=== PATIENT | male | born 1960 | race Caucasian/White ===

== ENCOUNTER 2023-12-10 05:29 | Inpatient (IN) | payer OTHER, SELFPAY ==
[2023-12-10] VITALS (96 sets, daily range): BP systolic 156–262; BP diastolic 78–154; PULSE 67–100; TEMP 36.3–36.8; O2SAT 90–99; BMI 28.7; BMI 28.5
--- NOTE | 2023-12-10 05:48 | XR_ITS ---
The [address] [address] Patient Name: NISH GARCIA MRN: [id number] date: 1960 Sex: M Assigned Patient Location: ER Current Patient Location: ED.MAIN Accession/Order Number: [id number] Exam Date: 12/10/2023 06:00 Report Date: 12/10/2023 06:40 At the request of: EVELINE WALDRON Procedure: XR chest 1V HISTORY: Headaches, dizziness and hypertension. XR chest 1V: 12/10/2023 6:00 AM EDT COMPARISON: None. FINDINGS: The cardiomediastinal silhouette appears within normal limits in size. No focal consolidation, pleural effusion, pneumothorax, or evidence of congestive heart failure is seen. XR/XR chest 1V IMPRESSION: No radiographic evidence of active cardiopulmonary disease is seen. Electronically authenticated by: WU BRICEÑO Date: 12/10/2023 06:40
--- NOTE | 2023-12-10 05:48 | ED_ITS ---
HPI HPI - General Adult General Chief complaint: Dizziness Stated complaint: dizzy Time Seen by Provider: 12/10/23 05:35 Source: patient Mode of arrival: walk-in Limitations: no limitations History of Present Illness HPI narrative: 62-year-old male presents for headache and dizziness. He has not been to the doctor had his blood pressure checked in more than 3 years. He was at a store yesterday and he had a dizzy episode that lasted for about 20 minutes. He did not pass out and he did not fall down. He has had a headache since then. No localized weakness or numbness. No fever or vomiting. Related Data Home Medications ?Medication ?Instructions ?Recorded ?Confirmed No Known Home Medications 12/10/23 12/10/23 Allergies Allergy/AdvReac Type Severity Reaction Status Date / Time No Known Drug Allergies Allergy Verified 12/10/23 05:41 Opioid HPI Opioid Management Most Recent Opioid Data: No Data to Display Review of Systems ROS Narrative A ten point review of systems is negative except as noted above. Exam Narrative Exam Narrative: Nurses note and vital signs reviewed and patient is not hypoxic. General: The patient appears well and in no apparent distress. Patient is resting comfortably on cart. Skin: Warm, dry, no pallor noted. There is no rash noted. Head: Normocephalic, atraumatic Eye: Normal conjunctiva, no drainage, EOMI. PERRL Ears, Nose, Mouth, and Throat: oral mucosa is moist. Nares patent. Cardiovascular: Regular Rate and Rhythm Respiratory: Patient is in no distress, no accessory muscle use, lungs are clear to auscultation, no wheezing, rales or rhonchi Back: non-tender GI: Soft and nontender Musculoskeletal: The patient has no evidence of calf tenderness, no pitting edema, symmetrical pulses noted bilaterally Neurological: A&O x4, normal speech; upper and lower extremity strength intact, cranial nerves II through XII intact Psychiatric: Cooperative Constitutional Vital Signs, click to edit/add: Last Vital Signs Temp 98.3 F 12/10/23 05:37 Pulse 80 12/10/23 06:13 Resp 20 12/10/23 06:13 BP 260/154 H 12/10/23 06:19 Pulse Ox 96 12/10/23 06:13 O2 Del Method Room Air 12/10/23 05:37 Course Vital Signs Vital signs: Vital Signs Temperature 98.3 F 12/10/23 05:37 Pulse Rate 94 H 12/10/23 05:37 Respiratory Rate 18 12/10/23 05:37 Blood Pressure 260/140 H 12/10/23 05:37 Pulse Oximetry 95 12/10/23 05:37 Oxygen Delivery Method Room Air 12/10/23 05:37 Temperature 98.3 F 12/10/23 05:37 Pulse Rate 80 12/10/23 06:13 Respiratory Rate 20 12/10/23 06:13 Blood Pressure 260/154 H 12/10/23 06:19 Pulse Oximetry 96 12/10/23 06:13 Oxygen Delivery Method Room Air 12/10/23 05:37 Medical Decision Making MDM Narrative Medical decision making narrative: The patient presents with elevated blood pressure. He was given IV labetalol and tests are ordered and the patient is signed out to Dr. Zacarias. Differential Diagnosis Differential Diagnosis: Hypertension, intracranial hemorrhage, acute kidney injury Lab Data Lab results reviewed: Yes I reviewed the patient's lab results Labs: Lab Results 12/10/23 Range/Units 05:50 WBC 12.0 H (4.0-11.0) 10^3/uL RBC 5.89 (4.70-6.10) 10^6/uL Hgb 17.5 (14.0-18.0) g/dL Hct 49.5 (42.0-54.0) % MCV 84.0 (80.0-94.0) fL MCH 29.7 (25.9-34.0) pg MCHC 35.4 H (29.9-35.2) g/dL RDW 12.5 (11.0-15.0) % Plt Count 161 (150-450) 10^3/uL MPV 9.0 L (9.5-13.5) fL Neut % (Auto) 68.9 (43.0-75.0) % Lymph % (Auto) 20.1 L (20.5-60.0) % [place] % (Auto) 4.8 (1.7-12.0) % Eos % (Auto) 5.0 (0.9-7.0) % Baso % (Auto) 1.0 (0.2-2.0) % Neut # (Auto) 8.3 H (1.4-6.5) 10^3/uL Lymph # (Auto) 2.4 (1.2-3.8) 10^3/uL [place] # (Auto) 0.6 (0.3-0.8) 10^3/uL Eos # (Auto) 0.6 (0.0-0.7) 10^3/uL Baso # (Auto) 0.1 (0.0-0.1) 10^3/uL Abs Immat Gran (auto) 0.03 (0.00-0.03) 10^3/uL Imm/Tot Granulo (auto) 0.2 (0.0-0.5) % Sodium 133 L (136-145) mmol/L Potassium 3.6 (3.5-5.1) mmol/L Chloride 98 (98-107) mmol/L Carbon Dioxide 28.2 (21.0-32.0) mmol/L Anion Gap 10.4 BUN 19.0 H (7.0-18.0) mg/dL Creatinine 1.55 H (0.70-1.30) mg/dL Est GFR ( Amer) 55 L (>=60) Est GFR (Non-Af Amer) 46 L (>=60) BUN/Creatinine Ratio 12.3 Glucose 97 (74-106) mg/dL Calcium 9.0 (8.5-10.1) mg/dL ECG Data Attestation: I personally reviewed and interpreted this ECG as follows: (EKG on my interpretation shows normal sinus rhythm with a rate of [address] segment elevation.) Critical Care Time Critical Care Time Critical Care Time: Yes Total Critical Care Time: 35 Attestation: Due to the high probability of sudden and clinically significant deterioration in the patient's condition he/she required the highest level of my preparedness to intervene urgently I provided critical care time including documentation time, medication orders and management, reevaluation, vital sign assessment, ordering and reviewing of lab tests, ordering and reviewing of x-ray studies, and admission orders. Aggregate critical care time is 35 minutes including only time during which I was engaged in work directly related to his/her care and did not include time spent treating other patients simultaneously. Discharge Plan Discharge Patient Disposition: Still a Patient
--- NOTE | 2023-12-10 05:48 | ECG_ITS ---
The [facility] Test Date: 2023-12-10 Pat Name: NISH GARCIA Department: Room: - Gender: Male [employer]: : 1960 Requested By: [id number] Order Number: [id number] Reading MD: MYA MERCADO Measurements Intervals [place] Rate: 82 P: 90 MN: 112 QRS: 62 QRSD: 100 T: 39 QT: 368 QTc: 406 Interpretive Statements 1100 Sinus rhythm 2210 Short MN interval [address] depression 9150 abnormal ECG No previous ECG available for comparison Electronically Signed On 12-10-2023 8:25:16 EDT by MYA MERCADO
--- NOTE | 2023-12-10 05:48 | CT_ITS ---
The [address] [address] Patient Name: NISH GARCIA MRN: [id number] date: 1960 Sex: M Assigned Patient Location: ER Current Patient Location: ER Accession/Order Number: [id number] Exam Date: 12/10/2023 06:00 Report Date: 12/10/2023 06:45 At the request of: EVELINE WALDRON Procedure: CT head/brain wo con EXAMINATION: CT Head without Contrast TECHNIQUE: Multiple axial noncontrast images of the brain were obtained and reformatted according to the standard protocol. QPP DOCUMENTATION: At least one of the following dose reduction techniques was utilized: Iterative reconstruction, and/or Automatic Exposure Control, and/or mA/kV adjustment based on body size. INDICATION: Hypertension, dizziness, headache COMPARISON: None FINDINGS: Intracranial hemorrhage: No CT evidence of intraparenchymal, intraventricular, or extraaxial hemorrhage. Infarct/Vascular: No evidence of acute transcortical infarctions. Subtle areas of decreased attenuation scattered throughout the supratentorial white matter nonspecific but most commonly associated with chronic small vessel ischemic disease. Intracranial Mass: No evidence of intracranial mass. CSF Spaces: The ventricles, sulci, and cisterns are normal. Calvarium and Scalp: Unremarkable. Mastoid Air Cells: Clear. Paranasal Sinuses: Visualized paranasal sinuses are clear. Orbits: Orbits are unremarkable. CT/CT head/brain wo con IMPRESSION: No CT evidence of acute intracranial abnormalities. Mild changes of chronic small vessel ischemic disease. Electronically authenticated by: SOURAV MASON Date: 12/10/2023 06:45
[2023-12-10 05:58] LABS: Basophils Absolute Auto 0.1 10^3/uL (0.0-0.1); Eosinophils Absolute Auto 0.6 10^3/uL (0.0-0.7); Hematocrit 49.5 % (42.0-54.0); Hemoglobin 17.5 g/dL (14.0-18.0); Immature Granulocytes Abs Auto 0.03 10^3/uL (0.00-0.03); Immature Granulocytes Pct Auto 0.2 % (0.0-0.5); Lymphocytes Absolute Auto 2.4 10^3/uL (1.2-3.8); Lymphocytes Percent Auto 20.1 % (20.5-60.0); Mean Corpuscular HGB Conc 35.4 g/dL (29.9-35.2); Mean Corpuscular Hemoglobin 29.7 pg (25.9-34.0); Monocytes Absolute Auto 0.6 10^3/uL (0.3-0.8); Monocytes Percent Auto 4.8 % (1.7-12.0); Neutrophils Absolute Auto 8.3 10^3/uL (1.4-6.5); Neutrophils Percent Auto 68.9 % (43.0-75.0); Platelet Count 161 10^3/uL (150-450); Red Blood Count 5.89 10^6/uL (4.70-6.10); Red Cell Distribution Width 12.5 % (11.0-15.0)
--- NOTE | 2023-12-10 06:01 | PC.NURSE ---
Pt presents to ER for dizziness that occurred yesterday Pt states he walked into [facility] and immediately became very dizzy and had to find something to hold on to so that he didnt fall Pt estimates this episode lasted approximately 5 minutes Pt states he then walked out to his truck and sat for about 30 minutes to make sure he was okay Pt states he has no longer felt dizzy but has a mild headache Pt states he lives alone and was too nervous to fall asleep feeling afraid that he may not be okay Pt states he just wants to be checked out Pt denies any and all medical history and medications
[2023-12-10 06:11] LABS: Anion Gap 10.4; BUN Creatinine Ratio 12.3; Carbon Dioxide 28.2 mmol/L (21.0-32.0); Chloride 98 mmol/L (98-107); Estimated GFR (African America 55 (>=60); Estimated GFR (Non-African Ame 46 (>=60); Glucose 97 mg/dL (74-106); Potassium 3.6 mmol/L (3.5-5.1); Sodium 133 mmol/L (136-145)
[2023-12-10] MEDS: LABETALOL HCL 20 MG/4 ML SYRINGE IVP (06:25)
[2023-12-10] MEDS: HYDRALAZINE HCL 20 MG/ML VIAL 10 MG IVP ×3 (07:27→17:02)
[2023-12-10 07:43] LABS: Bilirubin Urine NEGATIVE (NEGATIVE); Blood Urine NEGATIVE (NEGATIVE); Clarity Urine CLEAR (CLEAR); Color Urine LT. YELLOW (YELLOW); Glucose Urine UA NEGATIVE (NEGATIVE); Ketones Urine NEGATIVE (NEGATIVE); Leukocyte Esterase Urine NEGATIVE (NEGATIVE); Nitrite Urine NEGATIVE (NEGATIVE); Protein Urine NEGATIVE (NEG/TRACE); Specific Gravity Urine <=1.005 (1.005-1.025); Urobilinogen Urine 0.2 EU/dL (0.2-1.0)
[2023-12-10 07:57] LABS: Bacteria Urine NONE SEEN #/HPF (NONE SEEN); Cast Seen? NONE SEEN #/LPF (NONE SEEN); Crystals Seen? None Seen #/HPF (None Seen); Mucus Urine NONE SEEN (NONE SEEN); RBC Urine 0-2 #/HPF (0-2); Squamous Epithelial Cell Urine NONE SEEN #/LPF (NONE/RARE); WBC Urine NONE SEEN #/HPF (NONE SEEN)
[2023-12-10] MEDS: ONDANSETRON PF 4 MG/2 ML VIAL IV (08:18)
[2023-12-10 08:21] LABS: Troponin I High Sensitivity 92.2 pg/mL (4.0-76.1)
--- NOTE | 2023-12-10 08:25 | ECG_ITS ---
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
[2023-12-10] MEDS: MORPHINE SULFATE 2 MG/ML SYRINGE IV (08:50)
[2023-12-10] MEDS: NITROGLYCERIN IN 5 % DEXTROSE 50 MG/250 ML INFUS..BTL IV (08:50)
--- NOTE | 2023-12-10 10:05 | CA_ITS ---
Patient Name: NISH GARCIA MR#: [id number] : 1960 Exam Date: 12/11/2023 Ordering Doctor: SHAIKH Ana TINSLEY . ECHOCARDIOGRAM REPORT PROCEDURE: CA ECHO DOPPLER COMPLETE INDICATIONS: Elevated Trop, hypertension, smoker COMPARISON: None. DESCRIPTION: COMPLETE ECHOCARDIOGRAM Real-time transthoracic echocardiography with 2D, M-mode, spectral and color flow Doppler performed. QUALITY: Technical quality was good. 70 , 200#, BP 168/90 LEFT VENTRICLE: Normal chamber size. Borderline left ventricular hypertrophy. LV EF: Global left ventricular systolic function is difficult to assess but appears preserved; visually estimated ejection fraction is 60 to 65%. No significant segmental wall motion abnormalities. DIASTOLIC: Normal diastolic function. ATRIAL SEPTUM: Visually appears intact. LEFT ATRIUM: Normal chamber size. RIGHT ATRIUM: Normal chamber size. RIGHT VENTRICLE: Normal chamber size. Normal right ventricular systolic function. TRICUSPID VALVE: Normal mobility and thickness. No stenosis with mild regurgitation. No evidence of pulmonary hypertension. RVSP 31 mmHg MITRAL VALVE: Normal mobility and thickness. No evidence of mitral valve stenosis. There is no mitral annular calcification. Trivial mitral regurgitation. AORTIC VALVE: Normal trileaflet appearance. No visible sclerosis. Normal leaflet mobility. No evidence of aortic valve stenosis. No aortic regurgitation. AORTIC ROOT: Normal diameter and appearance. PULMONIC VALVE: Not well visualized. No stenosis. No regurgitation. PERICARDIUM: No evidence of pericardial effusion. IVC: Collapses with inspirations. IVC is dilated (2.2 cm) CONCLUSION: 1. Global left ventricular systolic function is normal; visually estimated ejection fraction is 60 to 65% 2. Normal right ventricular size and systolic function 3. Normal diastolic function 4. The left atrium is normal in size 5. Mild tricuspid regurgitation Adult Echocardiography Procedure Report Left Ventricle LVEDD (3.7 - 5.6 cm): 4.53 cm, 3.68 cm LVESD (2.2 - 4.0 cm): 2.89 cm LVIVS thickness (0.6 - 1.2 cm): 1.19 cm, 1.13 cm LVPW thickness (0.5 - 1.0 cm): 1.02 cm e': 0.08 m/s E - e': 7.99 LVOT Max Gradient: 4.72 mm[Hg] LVOT Area (cm2): 1.09 m/s Peak Velocity (LVOT): 1.09 m/s Mean Velocity (LVOT): 0.69 m/s LVOT Diameter 2.05 cm Left Atrium LA Volume Index (2D A2C): 22.57 ml/m2 Left Atrium Systolic Dimension: 3.23 cm Mitral Valve MV E to A Ratio: 1.03, 1.03 Mitral Valve A-Wave Peak Velocity: 0.65 m/s Mitral Valve E-Wave Peak Velocity: 0.66 m/s Right Ventricle Aorta AO Root Diam: 3.36 cm Aortic Valve AoV Area (Peak Joo): 3.12 cm2, 3.12 cm2 AoV Area (VTI): 3.40 cm2, 3.40 cm2 Peak Velocity(Antegrade Flow): 1.15 m/s Peak Gradient(Antegrade Flow): 5.30 mm[Hg] Mean Velocity(Antegrade Flow): 0.84 m/s Mean Gradient(Antegrade Flow): 3.10 mm[Hg] Velocity Time Integral: 22.46 cm Tricuspid Valve Peak Velocity (Regurgitant Flow): 2.41 m/s Pulmonic Valve Peak Velocity: 0.78 m/s Peak Gradient: 2.31 mm[Hg], 2.54 mm[Hg] Right Atrium Right Atrium Systolic Pressure: 29.89 ml, 29.89 ml Dictated by: Becky Ludwig M.D. on 12/13/2023 at 11:01 Approved by: Becky Ludwig M.D. on 12/13/2023 at 11:04
[2023-12-10 10:48] LABS: Estimated Average Glucose 103 mg/dL; Glycohemoglobin A1C 5.2 % (4.5-6.2)
[2023-12-10 10:51] LABS: Cholesterol 191 mg/dL (<=200); HDL Cholesterol 32 mg/dL (40-60); Triglycerides 166 mg/dL (<=150); VLDL CHOLESTEROL 33.2 mg/dL
[2023-12-10 10:53] LABS: Troponin I High Sensitivity 85.9 pg/mL (4.0-76.1)
[2023-12-10] MEDS: OXYCODONE HCL 5 MG TABLET PO (11:42)
[2023-12-10] MEDS: AMLODIPINE BESYLATE 5 MG TABLET 10 MG PO (11:43)
[2023-12-10] MEDS: ENOXAPARIN SODIUM 40 MG/0.4 ML SYRINGE SUBQ (11:43)
--- NOTE | 2023-12-10 12:00 | PM.HP ---
HPI H&P: HPI History of Present Illness Chief complaint: HYPERTENSION Narrative: 62-year-old male with no known medical history started to experience dizziness associated with headache that was intermittent and resolved with using oral aspirin. He continued to have similar symptoms and decided to come and earlier morning for further evaluation. He has not seen regular primary care physician for years. He has never been told that he has high blood pressure. Upon presentation, his systolic blood pressure was over 260. He was treated with IV hydralazine and labetalol and was admitted to ICU for hypertensive emergency. When I evaluated him in ICU, he was nauseous and had 2-3 episodes of vomiting. He also has chronic cough because of his smoking that has unchanged in recent past. He reports his headache is coming back but this could be because he was started on IV nitroglycerin drip by ED provider. Patient denies chest pain, shortness of breath. He denies visual changes, weakness/numbness. He is not experiencing dizziness/vertigo anymore. Opioid HPI Opioid Management Most Recent Opioid Data: Last Pain Scale 7 12/10/23 12:00 Last Pain Assessment 12/10/23 12:00 Last MAR Pain Assessment 12/10/23 11:42 Last ORT Total Score 0 12/10/23 11:05 Last ORT Risk Category Low Risk 12/10/23 11:05 Review of Systems ROS Status of ROS 10 or more systems reviewed and unremarkable except as noted in history and below PFSH PFS Medical History Current smoker ?F17.200 - Nicotine dependence, unspecified, uncomplicated (ICD-10) Social History (Updated 12/10/23 @ 12:04 by Shaikh Wendie MD) Within the past year, how often did you have a drink containing alcohol: never Within the past year, how many standard drinks containing alcohol did you have on a typical day: 1 or 2 Within the past year, how often did you have six or more drinks on one occasion: never Total score: 0 Score interpretation: A score less than 4 is consistent with normal alcohol consumption. Smoking status: Current every day smoker Non-prescribed substance use: denies use Highest level of school completed/degree received: high school graduate Meds Home Medications and Allergies Allergies Allergy/AdvReac Type Severity Reaction Status Date / Time No Known Drug Allergies Allergy Verified 12/10/23 05:41 Exam Constitutional Vital Signs, click to edit/add: Last Vital Signs Temp 97.4 F L 12/10/23 10:03 Pulse 73 12/10/23 11:05 Resp 16 12/10/23 11:05 BP 160/89 H 12/10/23 10:15 Pulse Ox 95 12/10/23 11:05 O2 Del Method Room Air 12/10/23 11:05 Results Labs Labs: Short CBC 12/10/23 Range/Units 05:50 WBC 12.0 H (4.0-11.0) 10^3/uL Hgb 17.5 (14.0-18.0) g/dL Hct 49.5 (42.0-54.0) % Plt Count 161 (150-450) 10^3/uL BMP 12/10/23 05:50 Sodium 133 L Potassium 3.6 Chloride 98 Carbon Dioxide 28.2 BUN 19.0 H Creatinine 1.55 H Glucose 97 Calcium 9.0 Urine 12/10/23 Range/Units 06:55 Urine Color Lt. yellow (YELLOW) Urine Clarity Clear (CLEAR) Urine pH 6.0 (5.0-9.0) Ur Specific [place] <=1.005 A (1.005-1.025) Urine Protein Negative (NEG/TRACE) mg/dL Urine Glucose (UA) Negative (NEGATIVE) mg/dL Assessment and Plan Assessment and Plan (1) Hypertensive emergency: Assessment and Plan: Patient presented with hypertensive emergency with systolic blood pressure as high as 260. He is feeling nauseous along with headache. Otherwise he is not complaining of any other symptoms and denies chest pain, shortness of breath, weakness, numbness, visual changes. I started him on oral carvedilol along with oral amlodipine. He was started on IV nitroglycerin drip but it is causing him headache. I will discontinue IV nitroglycerin drip for now. Continue with IV hydralazine as needed. He will give oral medication some time to work. If needed, we can start him on IV Cardene drip for hypertensive emergency. (2) Elevated troponin: Assessment and Plan: Likely because of hypertensive emergency. Denies chest pain, shortness of breath. Trend troponins. No significant/ischemic EKG changes. Echocardiogram to assess cardiac structure. Start on aspirin. (3) Elevated serum creatinine: Assessment and Plan: Elevated serum creatinine. Unknown known baseline serum creatinine. This could be acute elevation because of hypertensive emergency. Order serum protein/serum creatinine. Monitor serum creatinine. (4) Current smoker: Assessment and Plan: Discussed smoking cessation (5) Nausea and vomiting: Assessment and Plan: Likely due to accelerated hypertension. Denies abdominal pain, dysuria, constipation, diarrhea. Zofran as needed. Qualifiers: Vomiting type: unspecified Qualified Code(s): R11.2 - Nausea with vomiting, unspecified (6) Headache: Assessment and Plan: No acute intracranial pathology on CT head. No neurological signs and symptoms. Conservative care. Likely because of hypertensive emergency. Qualifiers: Headache type: unspecified Headache chronicity pattern: unspecified pattern Intractability: not intractable Qualified Code(s): R51.9 - Headache, unspecified (7) Dizziness: Assessment and Plan: Resolved. No evidence of ear infection. Likely because of hypertensive emergency Plan Patient presented with hypertensive emergency resulting in headache, elevated troponin, renal dysfunction. Even though his blood pressure has improved, he will need close monitoring on monitoring specialist along with close hemodynamic monitoring to ensure his blood pressure is gradually decreased. Goal blood pressure is 160-180/90-100 in first 24 hours. Needs cardiac monitoring for 24 to 48 hours because of elevated troponin as risk of ventricular arrhythmias. Patient admitted as inpatient as anticipated to require greater than 2 midnight of inpatient treatment/management of his acute illness
[2023-12-10] MEDS: LORAZEPAM 1 MG TABLET PO (14:09)
[2023-12-10] MEDS: ASPIRIN 81 MG TAB.CHEW PO (14:09)
[2023-12-10 15:45] LABS: Creatinine Urine Random 145.74 mg/dL (20.00-300.00); Protein Creatinine Ratio Urine 0.33; Total Protein Urine Random 47.6 mg/dL (<=11.9)
[2023-12-10] MEDS: CARVEDILOL 25 MG TABLET PO (20:20)
[2023-12-11] VITALS (17 sets, daily range): BP systolic 135–180; BP diastolic 68–97; PULSE 56–81; TEMP 36.3–36.8; O2SAT 92–98
[2023-12-11 05:35] LABS: Basophils Absolute Auto 0.1 10^3/uL (0.0-0.1); Basophils Percent Auto 0.5 % (0.2-2.0); Eosinophils Absolute Auto 0.3 10^3/uL (0.0-0.7); Eosinophils Percent Auto 1.9 % (0.9-7.0); Hematocrit 47.3 % (42.0-54.0); Hemoglobin 16.7 g/dL (14.0-18.0); Immature Granulocytes Abs Auto 0.05 10^3/uL (0.00-0.03); Immature Granulocytes Pct Auto 0.3 % (0.0-0.5); Lymphocytes Absolute Auto 1.8 10^3/uL (1.2-3.8); Lymphocytes Percent Auto 11.5 % (20.5-60.0); Mean Corpuscular HGB Conc 35.3 g/dL (29.9-35.2); Mean Corpuscular Hemoglobin 29.6 pg (25.9-34.0); Mean Corpuscular Volume 83.7 fL (80.0-94.0); Mean Platelet Volume 9.7 fL (9.5-13.5); Monocytes Absolute Auto 0.7 10^3/uL (0.3-0.8); Monocytes Percent Auto 4.3 % (1.7-12.0); Neutrophils Absolute Auto 12.5 10^3/uL (1.4-6.5); Neutrophils Percent Auto 81.5 % (43.0-75.0); Platelet Count 187 10^3/uL (150-450); Red Blood Count 5.65 10^6/uL (4.70-6.10); Red Cell Distribution Width 12.9 % (11.0-15.0); White Blood Count 15.3 10^3/uL (4.0-11.0)
[2023-12-11 05:59] LABS: Alanine Aminotransferase 29 U/L (16-63); Albumin Globulin Ratio 1.1; Alkaline Phosphatase 120 U/L (46-116); Anion Gap 13.5; Aspartate Amino Transferase 22 U/L (15-37); Bilirubin Total 1.7 mg/dL (0.2-1.0); Calcium 9.3 mg/dL (8.5-10.1); Carbon Dioxide 24.3 mmol/L (21.0-32.0); Chloride 94 mmol/L (98-107); Estimated GFR (African America 51 (>=60); Estimated GFR (Non-African Ame 42 (>=60); Globulin 3.5 g/dL; Glucose 123 mg/dL (74-106); Potassium 3.8 mmol/L (3.5-5.1); Sodium 128 mmol/L (136-145); Total Protein 7.5 g/dL (6.4-8.2)
[2023-12-11] MEDS: 0.9 % SODIUM CHLORIDE 1,000 ML 100 ML IV ×2 (08:23→21:33)
[2023-12-11] MEDS: ENOXAPARIN SODIUM 40 MG/0.4 ML SYRINGE SUBQ (08:30)
[2023-12-11] MEDS: AMLODIPINE BESYLATE 5 MG TABLET 10 MG PO (08:30)
[2023-12-11] MEDS: ASPIRIN 81 MG TAB.CHEW PO (08:30)
[2023-12-11] MEDS: CARVEDILOL 25 MG TABLET PO ×2 (08:30→21:32)
--- NOTE | 2023-12-11 09:51 | XR_ITS ---
The [address] [address] Patient Name: NISH GARCIA MRN: [id number] date: 1960 Sex: M Assigned Patient Location: MS Current Patient Location: MS Accession/Order Number: [id number] Exam Date: 12/11/2023 10:06 Report Date: 12/11/2023 10:46 At the request of: SHAIKH ALVINA Procedure: XR chest 2V EXAM: XR chest 2V HISTORY: cough COMPARISON: Chest study dated 12/10/2023 TECHNIQUE: PA and lateral views of the chest were obtained. FINDINGS: Heart and mediastinal contours are unremarkable in appearance. No acute infiltrate or consolidations are seen. A few small linear densities in the left lower lung field compatible with atelectatic and/or fibrotic changes. No obvious pneumothorax. Mild convexity of the dorsal spine to the right with mild degenerative changes present. Nonspecific air-fluid level in the stomach. XR/XR chest 2V IMPRESSION: Mild atelectatic and/or fibrotic changes in the left lower lung field. No acute infiltrate or consolidation seen. Electronically authenticated by: TO STEPHENSON Date: 12/11/2023 10:46
--- NOTE | 2023-12-11 10:22 | P.IMPN_ITS ---
Progress Note: A&P Assessment and Plan (1) Hypertensive emergency: Assessment and Plan: Blood pressure is poorly controlled. Continue with amlodipine, carvedilol. Added Imdur. Continue with IV hydralazine as needed. (2) Elevated troponin: Assessment and Plan: Likely because of hypertensive emergency. No chest pain, shortness of breath, palpitations. Echocardiogram to assess cardiac structure is pending. (3) Elevated serum creatinine: Assessment and Plan: Chronic kidney disease stage III with evidence of proteinuria. Monitor serum creatinine. (4) Current smoker: Assessment and Plan: Discussed smoking cessation (5) Nausea and vomiting: Assessment and Plan: Nausea with vomiting intermittently after coughing spells/fits. Qualifiers: Vomiting type: unspecified Qualified Code(s): R11.2 - Nausea with vomiting, unspecified (6) Headache: Assessment and Plan: Resolved. No evidence of acute intracranial pathology on CT head Qualifiers: Headache type: unspecified Headache chronicity pattern: unspecified pattern Intractability: not intractable Qualified Code(s): R51.9 - Headache, unspecified (7) Dizziness: Assessment and Plan: Resolved. No evidence of acute intracranial pathology on CT head. (8) Cough: Assessment and Plan: Reports chronic cough but seems like it has worsened from before. Repeat chest x-ray. Ordered respiratory panel. Tessalon Perles as needed. Qualifiers: Cough type: subacute Qualified Code(s): R05.2 - Subacute cough (9) Hyponatremia: Assessment and Plan: Likely hypovolemic hyponatremia. Started on IV fluids. Recheck chemistries. Plan Needs continued inpatient treatment as blood pressure is poorly controlled. Now has hyponatremia. Started on IV fluids, Imdur. Follow-up BMP. Monitor blood pressure and continue with close hemodynamic monitoring Internal Medicine - PN: Subj Subjective Interval history: Seen and examined. Blood pressure is poorly controlled. Patient has persistent productive cough that is severe enough that it makes him throw up sometimes. No fever, shortness of breath. Hyponatremia noted on labs today. Serum creatinine is more or less unchanged. Exam Constitutional Vital Signs, click to edit/add: Last Vital Signs Temp 98.2 F 12/11/23 07:29 Pulse 74 12/11/23 09:59 Resp 16 12/11/23 07:30 BP 180/97 H 12/11/23 07:29 Pulse Ox 93 L 06/03/24 07:29 O2 Del Method Room Air 12/11/23 07:29 Documenting provider has reviewed patient's vital signs: yes Common normals: no apparent distress and oriented x3 General appearance: cooperative Eye Common normals: conjunctivae normal and no scleral icterus Conjunctiva: conjunctiva(e) normal Respiratory Common normals: normal respiratory effort and clear to auscultation bilaterally Effort & inspection: able to speak in complete sentences Auscultation: clear to auscultation bilaterally Cardio Common normals: regular rate, S1 normal heart sound and S2 normal heart sound Rate: regular rate Heart sounds: S1 normal and S2 normal GI Common normals: Normal to inspection, nondistended, normoactive bowel sounds present, soft to palpation, non-tender and no hepatosplenomegaly Palpation: soft and no hepatosplenomegaly Extremity Common normals: no clubbing, cyanosis or edema Neuro Common normals: oriented x3, moves all extremities and no focal motor deficits Psych Common normals: mental status grossly normal, denies hallucinations, denies homicidal ideation and denies suicidal ideation Internal Medicine - PN: Obj Da Labs Labs: Laboratory Results - last 24 hr 12/10/23 12/10/23 12/11/23 10:19 14:55 05:26 WBC 15.3 H RBC 5.65 Hgb 16.7 Hct 47.3 MCV 83.7 MCH 29.6 MCHC 35.3 H RDW 12.9 Plt Count 187 MPV 9.7 Neut % (Auto) 81.5 H Lymph % (Auto) 11.5 L [place] % (Auto) 4.3 Eos % (Auto) 1.9 Baso % (Auto) 0.5 Neut # (Auto) 12.5 H Lymph # (Auto) 1.8 [place] # (Auto) 0.7 Eos # (Auto) 0.3 Baso # (Auto) 0.1 Abs Immat Gran (auto) 0.05 H Imm/Tot Granulo (auto) 0.3 Sodium 128 L Potassium 3.8 Chloride 94 L Carbon Dioxide 24.3 Anion Gap 13.5 BUN 20.0 H Creatinine 1.66 H Est GFR ( Amer) 51 L Est GFR (Non-Af Amer) 42 L BUN/Creatinine Ratio 12.0 Glucose 123 H Estimat Average Glucose 103 Hemoglobin A1c 5.2 Calcium 9.3 Total Bilirubin 1.7 H AST 22 ALT 29 Alkaline Phosphatase 120 H Troponin I High Sens 85.9 H* Total Protein 7.5 Albumin 4.0 Globulin 3.5 Albumin/Globulin Ratio 1.1 Triglycerides 166 H Cholesterol 191 LDL Cholesterol, Calc 126.0 VLDL Cholesterol 33.2 HDL Cholesterol 32 L Cholesterol/HDL Ratio 6.0 Ur Random Creatinine 145.74 U Random Total Protein 47.6 H Protein/Creatinin Ratio 0.33
--- NOTE | 2023-12-11 10:46 | CM.NOTE ---
Rounds made with Dr. Pressley, no discharge today. Continue IV fluids d/t low sodium. Pt also has elevated WBC and will complete respiratory panel.
[2023-12-11 10:53] LABS: Adenovirus NOT DETECTED (NOT DETECTE); Bordetella parapertussis NOT DETECTED (NOT DETECTE); Coronavirus 229E NOT DETECTED (NOT DETECTE); Coronavirus HKU1 NOT DETECTED (NOT DETECTE); Coronavirus NL63 NOT DETECTED (NOT DETECTE); Coronavirus OC43 NOT DETECTED (NOT DETECTE); Human Metapneumovirus NOT DETECTED (NOT DETECTE); Human Rhinovirus/Enterovirus NOT DETECTED (NOT DETECTE); Influenza A NOT DETECTED (NOT DETECTE); Influenza B NOT DETECTED (NOT DETECTE); Mycoplasma pneumoniae NOT DETECTED (NOT DETECTE); Parainfluenza Virus 1 NOT DETECTED (NOT DETECTE); Parainfluenza Virus 2 NOT DETECTED (NOT DETECTE); Parainfluenza Virus 3 NOT DETECTED (NOT DETECTE); Parainfluenza Virus 4 NOT DETECTED (NOT DETECTE); Respiratory Syncytial Virus NOT DETECTED (NOT DETECTE); SARS-CoV-2 NOT DETECTED (NOT DETECTE)
[2023-12-11] MEDS: ISOSORBIDE MONONITRATE 60 MG TAB.ER.24H PO (11:05)
[2023-12-11] MEDS: ACETAMINOPHEN 325 MG TABLET 650 MG PO (12:17)
--- NOTE | 2023-12-11 13:12 | MR_ITS ---
The [address] [address] Patient Name: NISH GARCIA MRN: [id number] date: 1960 Sex: M Assigned Patient Location: MS Current Patient Location: MS Accession/Order Number: [id number] Exam Date: 12/11/2023 13:45 Report Date: 12/11/2023 15:35 At the request of: SHAIKH ALVINA Procedure: MR head/brain wo con EXAM: MR head/brain wo con HISTORY: Suspected stroke COMPARISON: CT head 12/10/2023. TECHNIQUE: Axial diffusion-weighted imaging, T1 and FLAIR imaging was performed. Please note GRE and T2 images were unable to be obtained secondary to continued motion on the exam. FINDINGS: No acute ischemia. Mild T2 FLAIR signal hyperintensities are present involving the supratentorial white matter. Remote lacunar infarct involving the left high frontal centrum semiovale white matter. Prominent patchy FLAIR hyperintensity is present involving the central pontine white matter and right cerebellum which is of undetermined significance. No overt expansion is seen. Partial right mastoid effusion. MR/MR head/brain wo con IMPRESSION: 1. Please note exam was terminated prior to completion of study. 2. No acute ischemia. 3. Prominent central pontine FLAIR hyperintensities with patchy FLAIR hyperintensity involving the right cerebellum. This is of undetermined significance and can be seen with osmotic demyelination with sequela of an inflammatory process/infectious process and less likely sequela of chronic small vessel disease considered less likely. Depending on patient's clinical status consider repeat MR brain with and without contrast with attention to patient motion. 4. Probable remote left centrum semiovale lacunar infarct with superimposed supratentorial white matter change which demonstrates appearance more typical for sequela small vessel disease. Electronically authenticated by: JAISON ONTIVEROS Date: 12/11/2023 15:35
[2023-12-11 15:08] LABS: Anion Gap 11.9; BUN Creatinine Ratio 13.8; Calcium 8.9 mg/dL (8.5-10.1); Carbon Dioxide 29.1 mmol/L (21.0-32.0); Chloride 96 mmol/L (98-107); Estimated GFR (African America 53 (>=60); Estimated GFR (Non-African Ame 44 (>=60); Glucose 107 mg/dL (74-106); Sodium 133 mmol/L (136-145)
[2023-12-11] MEDS: DIPHENHYDRAMINE HCL 25 MG CAPSULE PO (21:32)
[2023-12-12] VITALS (10 sets, daily range): BP systolic 116–174; BP diastolic 67–89; PULSE 56–69; TEMP 36.6–37.2; O2SAT 91–96
[2023-12-12 05:11] LABS: Basophils Absolute Auto 0.1 10^3/uL (0.0-0.1); Basophils Percent Auto 0.6 % (0.2-2.0); Eosinophils Absolute Auto 0.3 10^3/uL (0.0-0.7); Hematocrit 40.4 % (42.0-54.0); Immature Granulocytes Abs Auto 0.03 10^3/uL (0.00-0.03); Immature Granulocytes Pct Auto 0.3 % (0.0-0.5); Lymphocytes Absolute Auto 2.1 10^3/uL (1.2-3.8); Lymphocytes Percent Auto 18.4 % (20.5-60.0); Mean Corpuscular HGB Conc 34.7 g/dL (29.9-35.2); Mean Corpuscular Hemoglobin 29.8 pg (25.9-34.0); Monocytes Absolute Auto 0.6 10^3/uL (0.3-0.8); Monocytes Percent Auto 5.6 % (1.7-12.0); Neutrophils Percent Auto 72.1 % (43.0-75.0); Platelet Count 145 10^3/uL (150-450); Red Cell Distribution Width 12.8 % (11.0-15.0); White Blood Count 11.1 10^3/uL (4.0-11.0)
[2023-12-12 05:53] LABS: Alanine Aminotransferase 30 U/L (16-63); Albumin Globulin Ratio 1.1; Albumin Level 3.3 g/dL (3.4-5.0); Alkaline Phosphatase 83 U/L (46-116); Anion Gap 12.8; Aspartate Amino Transferase 23 U/L (15-37); BUN Creatinine Ratio 13.5; Bilirubin Total 0.8 mg/dL (0.2-1.0); Calcium 8.5 mg/dL (8.5-10.1); Chloride 104 mmol/L (98-107); Estimated GFR (African America 58 (>=60); Estimated GFR (Non-African Ame 48 (>=60); Globulin 2.9 g/dL; Glucose 97 mg/dL (74-106); Potassium 3.8 mmol/L (3.5-5.1); Sodium 138 mmol/L (136-145); Total Protein 6.2 g/dL (6.4-8.2)
[2023-12-12] MEDS: AMLODIPINE BESYLATE 5 MG TABLET 10 MG PO (08:11)
[2023-12-12] MEDS: ENOXAPARIN SODIUM 40 MG/0.4 ML SYRINGE SUBQ (08:11)
[2023-12-12] MEDS: ISOSORBIDE MONONITRATE 60 MG TAB.ER.24H PO (08:11)
[2023-12-12] MEDS: ASPIRIN 81 MG TAB.CHEW PO (08:11)
[2023-12-12] MEDS: CARVEDILOL 25 MG TABLET PO (08:11)
[2023-12-12] MEDS: 0.9 % SODIUM CHLORIDE 1,000 ML 100 ML IV (08:11)
--- NOTE | 2023-12-12 09:54 | SWNOTE1 ---
SW to complete assessment today with pt, he may need SNF, HH, or outpt therapy?
--- NOTE | 2023-12-12 10:18 | PM.DS1 ---
DS: Providers Provider Date of admission: 12/10/23 10:24 Primary care physician: Non-Staff Physician, Admitting clinician: Shaikh Wendie Attending physician on admission: Shaikh Wendie Consults: 12/10/23 10:03 Occupational Therapy Eval and Treat Routine Reason for consultation: Ambulatory dysfunction/weakness Physical Therapy Eval and Treat Routine Reason for consultation: Ambulatory dysfunction/weakness Attending physician on discharge: Shaikh Wendie Discharging clinician: Shaikh Wendie Anticipated date of discharge: 12/12/23 DS: Diagnosis Discharge Diagnosis (1) Hypertensive emergency: Assessment and plan: Resolved. Will discharge on oral carvedilol, amlodipine and lsoartan Will need outpatient f/u (2) Elevated troponin: Assessment and plan: Likely secondary to hypertensive emergency. (3) Elevated serum creatinine: Assessment and plan: with proteinuria. likely CKD. No improvement with IVF. (4) Current smoker: Assessment and plan: Discussed smoking cessation (5) Nausea and vomiting: Assessment and plan: Resolved. Qualifiers: Vomiting type: unspecified Qualified Code(s): R11.2 - Nausea with vomiting, unspecified (6) Headache: Assessment and plan: resolved Qualifiers: Headache type: unspecified Headache chronicity pattern: unspecified pattern Intractability: not intractable Qualified Code(s): R51.9 - Headache, unspecified (7) Dizziness: Assessment and plan: CTH - no acute stroke. MRI - no acute stroke but possible old infarct. (8) Cough: Assessment and plan: Resolved. likely undiagnosed COPD CXR - no pna Qualifiers: Cough type: subacute Qualified Code(s): R05.2 - Subacute cough (9) Hyponatremia: Assessment and plan: Resolved. (10) H/O: stroke: DS: Summary Hospital Course Hospital Course: 63-year-old male with no known past medical history presented to the hospital with dizziness, headache and was found to have hypertensive emergency with blood pressure as high as 260/120. He was also noted to have elevated serum creatinine, troponin and was admitted to ICU for hypertensive emergency. CT head was negative for acute intracranial pathology. Initially he was started on nitroglycerin drip but it was discontinued later on as his blood pressure improved with oral antihypertensives including amlodipine and carvedilol. He denied chest pain, shortness of breath. No known prior history of coronary artery disease. Echocardiogram with no significant cardiac structural abnormalities. Will benefit from outpatient ischemic workup for underlying coronary artery disease. He had an MRI brain that did not show any acute ischemia but was limited because of motion artifact. There was evidence of remote infarct for which she was started on daily aspirin and Lipitor. His serum creatinine is elevated likely because of CKD as it did not improve with IV hydration. Upon discharge he will need amlodipine, carvedilol and losartan for his high blood pressure. He will need to follow-up with PCP in 1 to 2 weeks. Patient was counseled and educated on smoking cessation. Status at Discharge Functional status at discharge: independent ambulation Overall status at discharge: patient is back to baseline Time Spent with Patient Time attestation: Total time spent providing and/or coordinating discharge services: Time spent: greater than 30 minutes Exam Constitutional Vital Signs, click to edit/add: Last Vital Signs Temp 98.0 F 12/12/23 08:08 Pulse 63 12/12/23 10:00 Resp 16 12/12/23 08:18 BP 174/88 H 12/12/23 08:08 Pulse Ox 96 12/12/23 10:01 O2 Del Method Room Air 12/12/23 10:01 Documenting provider has reviewed patient's vital signs: yes Common normals: no apparent distress and oriented x3 General appearance: cooperative Respiratory Common normals: normal respiratory effort and clear to auscultation bilaterally Effort & inspection: able to speak in complete sentences Auscultation: clear to auscultation bilaterally Cardio Common normals: regular rate, S1 normal heart sound and S2 normal heart sound Rate: regular rate Heart sounds: S1 normal and S2 normal Neuro Common normals: oriented x3, moves all extremities and no focal motor deficits Psych Common normals: mental status grossly normal, denies hallucinations, denies homicidal ideation and denies suicidal ideation DS: Data Data Completed and Pending Labs on day of discharge: Labs from last 24 hours 12/12/23 12/11/23 12/11/23 04:35 14:30 10:48 WBC 11.1 H RBC 4.70 Hgb 14.0 Hct 40.4 L MCV 86.0 MCH 29.8 MCHC 34.7 RDW 12.8 Plt Count 145 L MPV 10.0 Neut % (Auto) 72.1 Lymph % (Auto) 18.4 L [place] % (Auto) 5.6 Eos % (Auto) 3.0 Baso % (Auto) 0.6 Neut # (Auto) 8.0 H Lymph # (Auto) 2.1 [place] # (Auto) 0.6 Eos # (Auto) 0.3 Baso # (Auto) 0.1 Abs Immat Gran (auto) 0.03 Imm/Tot Granulo (auto) 0.3 Sodium 138 133 L Potassium 3.8 4.0 Chloride 104 96 L Carbon Dioxide 25.0 29.1 Anion Gap 12.8 11.9 BUN 20.0 H 22.0 H Creatinine 1.48 H 1.60 H Est GFR ( Amer) 58 L 53 L Est GFR (Non-Af Amer) 48 L 44 L BUN/Creatinine Ratio 13.5 13.8 Glucose 97 107 H Calcium 8.5 8.9 Total Bilirubin 0.8 AST 23 ALT 30 Alkaline Phosphatase 83 Total Protein 6.2 L Albumin 3.3 L Globulin 2.9 Albumin/Globulin Ratio 1.1 Adenovirus (PCR) Not detected B. pertussis DNA (PCR) Not detected B.parapertussis DNA PCR Not detected C. pneumoniae DNA (PCR) Not detected Coronavirus Type OC43 Not detected Coronavirus Type HKU1 Not detected Coronavirus Type 229E Not detected Coronavirus Type NL63 Not detected Human Metapneumovir PCR Not detected Influenza Type A (PCR) Not detected Influenza Type B (PCR) Not detected M. pneumoniae (PCR) Not detected Parainfluenza PCR Not detected Parainfluenza 2 (PCR) Not detected Parainfluenza 3 (PCR) Not detected Parainfluenza 4 (PCR) Not detected RSV (RT-PCR) Not detected Entero/Rhino (PCR) Not detected SARS-CoV-2 (PCR) Not detected Discharge Plan Discharge Disposition: Home, Self-Care Condition: Good Discharge Medications: New aspirin 81 mg tablet,chewable 81 mg PO DAILY Qty: 30 0RF amlodipine 10 mg tablet 10 mg PO DAILY Qty: 30 0RF carvedilol [Coreg] 25 mg tablet 25 mg PO BID Qty: 60 0RF Rx Instructions: must administer with a meal/food atorvastatin [Lipitor] 40 mg tablet 40 mg PO DAILY Qty: 30 0RF losartan 100 mg tablet 100 mg PO DAILY Qty: 30 0RF Activity: resume usual activities as tolerated Diet: advance to your usual diet Print Language: Indian Forms: Portal Instructions Follow Up Appointments: Please go to [email or web address] and select TO BECOME A NEW PATIENT at the top right of the page. Fill out and submit the form and the [facility] office will call to schedule you for a follow up appt. within 24 hrs of submission.
--- NOTE | 2023-12-12 10:26 | REH.PTDLY ---
Physical Therapy Daily Note PT Daily Note/Assess Start: 12/12/23 10:22 Freq: Status: Active Protocol: Document 12/12/23 10:22 ANMOL (Rec: 12/12/23 10:26 ANMOL [id number]) Physical Therapy Daily Note/Assessment Time In 09:33 Time Out 09:48 Subjective No complaints this morning, agreeable to therapy. Therapeutic Exercise Minutes (minutes) 7 Therapeutic Exercise Units 0 Therapeutic Exercise Treatment Sitting bedside instructed pt in B LE LAQ and marching 10x ea. Standing exs with UE support 10x ea for improved strength with exs including HR , marching, squats, and hip flexion. Therapeutic Activity Minutes (minutes) 8 Therapeutic Activity Units 1 Therapeutic Activity Comments Pt performs sit to stand transfers 5x from bedside with no UE use with no LOB. Gait training using IV pole 250 feet with R LE appearing to fatigue last 100 feet and knee buckling 1x, but pt denies any fatigue. Total Therapy Minutes 15 Total Physical Therapy Units 1 Daily Note Summary Progressed gait distance with mild instability in R LE, however pt seems to be un phased by this. No complaints with exs with good tolerance noted. Pt reports mild fatigue noted post rx.
--- NOTE | 2023-12-12 11:25 | CM.NOTE ---
Rounds made with Dr. Pressley, pt will discharge to home today. Discussed with Dr. Pressley OT and PT notes. Discharge planning discussed with pt, pt feels he is at his baseline and is in agreement to outpt PT. Order written by Dr. Pressley for outpt PT. Dr. Pressley aware of MRI results, no change in discharge plan. Assisted pt with online application for [facility] for follow up. Pt currently does not have primary care doctor. PT scipt given to patient.
--- NOTE | 2023-12-13 14:39 | CM.DCFOLLOWU ---
Person spoke with: patient How are you feeling?well How is your pain? none Did you understand your discharge instructions? yes Do you have any questions about your discharge instructions? no Were you given any prescriptions at discharge? yes Were you able to get your prescriptions filled? yes Do you understand how to take your medications as ordered? yes, one med made him feel dizzy. Advised to monitor his meds and write down information to take to his follow up apt Monday Do you have any questions about your follow up appointment and do you plan to keep your follow up appointment? no questions. Follow up is [facility] is 12/19/23 Is there anything else that you would like to discuss? no Questions/Comments/Concerns/Other: no
== END 2023-12-12 12:44 | disposition home or self-care (01) | DRG 305 ==
LOC: ER 09:07 → ICU 10:28 → MS 18:33
PROVIDERS: Emergency Medicine; Admitting Provider Internal Medicine; Emergency Provider Emergency Medicine; Visit Provider Internal Medicine
DX: I16.1 Hypertensive emergency (principal); E87.1 Hypo-osmolality and hyponatremia; I12.9 Hypertensive chronic kidney disease with stage 1 through stage 4 chronic kidney disease, or unspecified chronic kidney disease; N18.30 Chronic kidney disease, stage 3 unspecified; R79.89 Other specified abnormal findings of blood chemistry; R11.2 Nausea with vomiting, unspecified; R51.9 Headache, unspecified; R42 Dizziness and giddiness; R74.8 Abnormal levels of other serum enzymes; F17.200 Nicotine dependence, unspecified, uncomplicated; R05.2 Subacute cough; Z86.73 Personal history of transient ischemic attack (TIA), and cerebral infarction without residual deficits; Z20.822 Contact with and (suspected) exposure to COVID-19
CPT/HCPCS: 0202U; 36415; 70450; 70551; 71045; 71046; 80048; 80053; 80061; 81001; 82570; 82607; 83036; 84156; 84484; 85025; 93005; 93306; 94761; 96361; 96372; 96374; 96375; 96376; 97161; 97165; 97530; 99285

== ENCOUNTER 2024-04-30 12:41 | Inpatient (IN) | payer OTHER, SELFPAY ==
[2024-04-30] VITALS (55 sets, daily range): BP systolic 119–220; BP diastolic 77–134; PULSE 78–104; TEMP 36.3–36.7; O2SAT 94–98; BMI 28.7; BMI 25.2
--- NOTE | 2024-04-30 13:08 | ECG_ITS ---
The [facility] Test Date: 2024-04-30 Pat Name: NISH GARCIA Department: Room: - Gender: Male Provider Contracting Consultant: : 1960 Requested By: Order Number: [id number] Reading MD: MYA MERCADO Measurements Intervals [place] Rate: 86 P: 46 MA: 112 QRS: 57 QRSD: 108 T: -68 QT: 366 QTc: 410 Interpretive Statements 1100 Sinus rhythm with occasional supraventricular premature complexes 2210 Short MA interval [address] depression, can't exclude inferior ischemia 9150 abnormal ECG Electronically Signed On 04-30-2024 22:23:34 EDT by MYA MERCADO
--- NOTE | 2024-04-30 13:12 | CT_ITS ---
The [address] [address] Patient Name: NISH GARCIA MRN: [id number] date: 1960 Sex: M Assigned Patient Location: ER Current Patient Location: ER Accession/Order Number: [id number] Exam Date: 04/30/2024 13:15 Report Date: 04/30/2024 13:39 At the request of: MEDARDO PANDA Procedure: CT head/brain wo con EXAM: CT head/brain wo con HISTORY: papilledema on ophthalmic exam COMPARISON: CT head 6-24. TECHNIQUE: Axial noncontrast CT imaging of the head and sagittal reformats This CT exam was performed using one or more of the following dose reduction techniques: Automated exposure control, adjustment of the MA and/or kV according to patient size, or use of iterative reconstruction technique. FINDINGS: Bilateral chenega ocular lens replacements. Mastoid air cells are well aerated. Calvarium/skull base: No evidence of acute fracture or destructive lesion. Paranasal sinuses: No air fluid levels. Brain: No acute intracranial hemorrhage. No acute large vascular territory infarct. Remote lacunar infarct of the left frontal centrum semiovale white matter. Likely small remote lacunar infarct involving lateral left thalamus and adjacent posterior limb of the internal capsule. This is unchanged from prior. No mass lesion or mass effect. No hydrocephalus. CT/CT head/brain wo con IMPRESSION: No acute large vascular territory infarct or acute intracranial hemorrhage. Mild chronic changes as described above. Electronically authenticated by: JAISON ONTIVEROS Date: 04/30/2024 13:39
[2024-04-30 13:14] LABS: Basophils Absolute Auto 0.1 10^3/uL (0.0-0.1); Basophils Percent Auto 1.1 % (0.2-2.0); Eosinophils Absolute Auto 0.4 10^3/uL (0.0-0.7); Eosinophils Percent Auto 3.3 % (0.9-7.0); Hematocrit 52.5 % (42.0-54.0); Hemoglobin 18.2 g/dL (14.0-18.0); Immature Granulocytes Abs Auto 0.03 10^3/uL (0.00-0.03); Immature Granulocytes Pct Auto 0.3 % (0.0-0.5); Lymphocytes Absolute Auto 2.3 10^3/uL (1.2-3.8); Lymphocytes Percent Auto 19.8 % (20.5-60.0); Mean Corpuscular HGB Conc 34.7 g/dL (29.9-35.2); Mean Corpuscular Volume 86.6 fL (80.0-94.0); Mean Platelet Volume 9.7 fL (9.5-13.5); Monocytes Absolute Auto 0.4 10^3/uL (0.3-0.8); Monocytes Percent Auto 3.7 % (1.7-12.0); Neutrophils Absolute Auto 8.2 10^3/uL (1.4-6.5); Neutrophils Percent Auto 71.8 % (43.0-75.0); Platelet Count 185 10^3/uL (150-450); Red Blood Count 6.06 10^6/uL (4.70-6.10); Red Cell Distribution Width 12.3 % (11.0-15.0); White Blood Count 11.4 10^3/uL (4.0-11.0)
[2024-04-30] MEDS: HYDRALAZINE HCL 20 MG/ML VIAL 10 MG IVP (13:16)
--- NOTE | 2024-04-30 13:27 | ED_ITS ---
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 at that time his op hthalmologist told him that when he looked in his eyes he can tell that his blood pressure is elevated The patient denies any headache nausea vomiting or any chest pain Related Data Home Medications ?Medication ?Instructions ?Recorded ?Confirmed No Known Home Medications 04/30/24 04/30/24 Allergies Allergy/AdvReac Type Severity Reaction Status Date / Time No Known Drug Allergies Allergy Verified 12/10/23 05:41 Opioid HPI Opioid Management Most Recent Opioid Data: Last Pain Scale 0 12/12/23 11:06 12/12/23 Last ORT Total Score 0 12/10/23 11:05 12/10/23 Last ORT Risk Category Low Risk 12/10/23 11:05 12/10/23 Review of Systems ROS Status of ROS 10 or more systems reviewed and unremark able except as noted in history and below PFSH PFSH Medical History Elevated serum creatinine ?R79.89 - Other specified abnormal findings of blood chemistry (ICD-10) Elevated troponin ?R79.89 - Other specified abnormal findings of blood chemistry (ICD-10) HTN (hypertension) ?I10 - Essential (primary) hypertension (ICD-10) CKD stage 3a, GFR 45-59 ml/min ?N18.31 - Chronic kidney disease, stage 3a (ICD-10) HLD (hyperlipidemia) ?E78.5 - Hyperlipidemia, unspecified (ICD-10) H/O: stroke ?Z86.73 - Personal history of transient ischemic attack (TIA), and cerebral infarction without residual deficits (ICD-10) Current smoker ?F17.200 - Nicotine dependence, unspecified, uncomplicated (ICD-10) Social History (Updated 12/10/23 @ 12:04 by Shaikh Wendie MD) Within the past year, how often did you have a drink containing alcohol: never Within the past year, how many standard drinks containing alcohol did you have on a typical day: 1 or 2 Within the past year, how often did you have six or more drinks on one occasion: never Total score: 0 Score interpretation: A score less than 4 is consistent with normal alcohol consumption. Smoking status: Current every day smoker Non-prescribed substance use: denies use Highest level of school completed/degree received: high school graduate Exam Narrative Exam Narrative: Nurses notes and vital signs reviewed and patient is not hypoxic. General: Well-appearing and in no apparent distress. Skin: Warm, dry, no pallor noted. No rash. Head: Normocephalic, atraumatic. Neck: Supple, non-tender. Eye: Pupils are equal, round dilated bilateral pupil Ears, Nose, Mouth, and Throat: TM are clear, no nasal mucosal hypertrophy. Oral mucosa is moist, no posterior oropharynx erythema, uvula is mid-line Cardiovascular: Regular Rate and Rhythm without murmur, gallop or rub. Respiratory: No accessory muscle use or respiratory distress. Lungs are clear to auscultation, no wheezing, rales or rhonchi Chest Wall: no tenderness Back: No midline thoracic or lumbar vertebral tenderness. No CVA tenderness Musculoskeletal: normal ROM, no calf or popliteal tenderness, no lower extremity edema/swelling GI: Abdomen is soft, non-distended. Normal bowel sounds. No masses appreciated. No tenderness to palpation. No rebound, guarding, or rigidity noted. Neurological: A&O x4. No cranial nerve dysfunction observed. No truncal ataxia. Moves all extremities. Sensation intact. Psychiatric: Cooperative and interactive. Normal mood and affect. Constitutional Vital Signs, click to edit/add: Last Vital Signs Temp 98.0 F 04/30/24 12:43 Pulse 97 H 04/30/24 12:43 Resp 18 04/30/24 12:43 BP 220/112 H 04/30/24 13:35 Pulse Ox 98 04/30/24 12:43 O2 Del Method Room Air 04/30/24 12:43 Course Vital Signs Vital signs: Vital Signs Temperature 98.0 F 04/30/24 12:43 Pulse Rate 97 H 04/30/24 12:43 Respiratory Rate 18 04/30/24 12:43 Blood Pressure 218/120 H 04/30/24 12:43 Pulse Oximetry 98 04/30/24 12:43 Oxygen Delivery Method Room Air 04/30/24 12:43 Temperature 98.0 F 04/30/24 12:43 Pulse Rate 97 H 04/30/24 12:43 Respiratory Rate 18 04/30/24 12:43 Blood Pressure 220/112 H 04/30/24 13:35 Pulse Oximetry 98 04/30/24 12:43 Oxygen Delivery Method Room Air 04/30/24 12:43 Medical Decision Making [facility] Narrative Medical decision making narrative: The patient EKG showing sinus rhythm with a heart rate of [address] elevation or depression The patient denies any chest pain or headache But the patient chemistry showing increase in the kidney function compared to baseline in addition to the patient troponin is mildly elevated The patient case was discussed with Dr Rubio and he agreed that the the patient elevated troponin mostly secondary to hypertensive emergency Initially upon arrival the patient was provided hydralazine, but there was no effect on his blood pressure it still stayed around 220 systolic The patient also had a CT head showing no acute pathology The patient was started on nicardipine drip Patient case was discussed with and he agree with above-mentioned plan Lab Data Labs: Lab Results 04/30/24 Range/Units 12:57 WBC 11.4 H (4.0-11.0) 10^3/uL RBC 6.06 (4.70-6.10) 10^6/uL Hgb 18.2 H (14.0-18.0) g/dL Hct 52.5 (42.0-54.0) % MCV 86.6 (80.0-94.0) fL MCH 30.0 (25.9-34.0) pg MCHC 34.7 (29.9-35.2) g/dL RDW 12.3 (11.0-15.0) % Plt Count 185 (150-450) 10^3/uL MPV 9.7 (9.5-13.5) fL Neut % (Auto) 71.8 (43.0-75.0) % Lymph % (Auto) 19.8 L (20.5-60.0) % [place] % (Auto) 3.7 (1.7-12.0) % Eos % (Auto) 3.3 (0.9-7.0) % Baso % (Auto) 1.1 (0.2-2.0) % Neut # (Auto) 8.2 H (1.4-6.5) 10^3/uL Lymph # (Auto) 2.3 (1.2-3.8) 10^3/uL [place] # (Auto) 0.4 (0.3-0.8) 10^3/uL Eos # (Auto) 0.4 (0.0-0.7) 10^3/uL Baso # (Auto) 0.1 (0.0-0.1) 10^3/uL Abs Immat Gran (auto) 0.03 (0.00-0.03) 10^3/uL Imm/Tot Granulo (auto) 0.3 (0.0-0.5) % Sodium 142 (136-145) mmol/L Potassium 3.9 (3.5-5.1) mmol/L Chloride 103 (98-107) mmol/L Carbon Dioxide 26.4 (21.0-32.0) mmol/L Anion Gap 16.5 BUN 17.0 (7.0-18.0) mg/dL Creatinine 1.90 H (0.70-1.30) mg/dL Est GFR ( Amer) 44 L (>=60 mL/min/1.73m^2) Est GFR (Non-Af Amer) 36 L (>=60 mL/min/1.73m^2) BUN/Creatinine Ratio 8.9 Glucose 123 H (74-106) mg/dL Calcium 9.5 (8.5-10.1) mg/dL Total Bilirubin 0.9 (0.2-1.0) mg/dL AST 24 (15-37) U/L ALT 39 (16-63) U/L Alkaline Phosphatase 134 H (46-116) U/L Troponin I High Sens 81.9 H* (4.0-76.1) pg/mL Total Protein 7.7 (6.4-8.2) g/dL Albumin 4.1 (3.4-5.0) g/dL Globulin 3.6 g/dL Albumin/Globulin Ratio 1.1 Discharge Plan Discharge Chief Complaint: Recheck/Abnormal Lab/Rx Clinical Impression: Hypertensive emergency, EMILIE (acute kidney injury), Elevated troponin Patient Disposition: Admitted As Inpatient Time of Disposition Decision: 13:46
[2024-04-30 13:31] LABS: Alanine Aminotransferase 39 U/L (16-63); Albumin Globulin Ratio 1.1; Albumin Level 4.1 g/dL (3.4-5.0); Alkaline Phosphatase 134 U/L (46-116); Anion Gap 16.5; Aspartate Amino Transferase 24 U/L (15-37); BUN Creatinine Ratio 8.9; Bilirubin Total 0.9 mg/dL (0.2-1.0); Calcium 9.5 mg/dL (8.5-10.1); Carbon Dioxide 26.4 mmol/L (21.0-32.0); Chloride 103 mmol/L (98-107); Estimated GFR (African America 44 (>=60 mL/min/1.73m^2); Estimated GFR (Non-African Ame 36 (>=60 mL/min/1.73m^2); Globulin 3.6 g/dL; Glucose 123 mg/dL (74-106); Potassium 3.9 mmol/L (3.5-5.1); Sodium 142 mmol/L (136-145); Total Protein 7.7 g/dL (6.4-8.2)
[2024-04-30 13:35] LABS: Troponin I High Sensitivity 81.9 pg/mL (4.0-76.1)
[2024-04-30] MEDS: NICARDIPINE IN NACL, ISO-OSM 40 MG/200 ML PIGGYBACK 25 MG IV (13:55)
[2024-04-30] MEDS: LOSARTAN POTASSIUM 50 MG TABLET 100 MG PO (14:31)
[2024-04-30] MEDS: AMLODIPINE BESYLATE 5 MG TABLET 10 MG PO (14:31)
[2024-04-30] MEDS: ASPIRIN 81 MG TABLET.DR PO (14:31)
--- OUTSIDE RECORDS SUMMARY | 2024-04-30 14:33 | XMS_ITS | CCD ---
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 CURRENT DRUG THERAPY] Onset: 06-30-2018 Episodic Results Test Name Value Interpretation Reference Range Facil ity CBC AUTO DIFFon 06-30-2018 Basophils Auto #/vol (Bld) 0.1 103/ul Normal 0.0-0.1 [facility] Comment on above: Performed By: #### C BC ####[facility] [address] [place], [place] [address]Suxmvp Angela Basophils/100 WBC Auto (Bld) 1.1 % Normal 0.2-2.0 [facility] Comment on above: Performed By: #### C BC ####[facility] [address] [place], [place] [address]Vweibk Angela Eosinophils Auto #/vol (Bld) 0.3 103/ul Normal 0.0-0.7 [facility] Comment on above: Performed By: #### C BC ####[facility] [address] [place], [place] [address]Dhkhpo Agnela Eosinophils/100 WBC Auto (Bld) 4.0 % Normal 0.9-7.0 [facility] Comment on above: Performed By: #### C BC ####[facility] [address]xs[address] [place], [place] [address]Exndwa Angela Erythrocyte distribution width Auto Ratio (RBC) 12.5 % Normal 11.0-15.0 [facility] Comment on above: Performed By: #### C BC ####[facility] Yufzqbsg[address] Angela Hematocrit Auto Volume Fraction (Bld) 47.6 % Normal 42.0-54.0 [facility] Comment on above: Performed By: #### C BC ####[facility] [address] [place] [address] Angela Hemoglobin mass conc (Bld) 16.7 g/dL Normal 14.0-18.0 [facility] Comment on above: Performed By: #### C BC ####[facility] [address] [place] [address] Angela IG # 0.02 10e3/ul Normal 0.00-0.03 [facility] Comment on above: Performed By: #### C BC ####[facility] [address] [place] [address] Angela IG % 0.2 % Normal 0.0-0.5 [facility] Comment on above: Performed By: #### C BC ####[facility] [address] [place] [address] Angela Lymphocytes Auto #/vol (Bld) 1.8 103/ul Normal 1.2-3.8 [facility] Comment on above: Performed By: #### C BC ####[facility] [address] [place] [address] Angela Lymphocytes/100 WBC Auto (Bld) 22.3 % Normal 20.5-60.0 [facility] Comment on above: Performed By: #### C BC ####[facility] [address] [place] [address] Angela MANUAL DIFF REQ NO Normal [facility] Comment on above: Performed By: #### C BC ####[facility] [address] [place] [address] Angela MCH Auto Entitic mass (RBC) 29.7 pg Normal 25.9-34.0 [facility] Comment on above: Performed By: #### C BC ####[facility] [address] [place], [place] [address]Cnirqo Angela MCHC Auto mass conc (RBC) 35.1 g/dL Normal 29.9-35.2 [facility] Comment on above: Performed By: #### C BC ####[facility] [address] [place], [place] [address]Kwratu Angela MCV Auto Entitic volume (RBC) 84.5 fL Normal 80.0-94.0 [facility] Comment on above: Performed By: #### C BC ####[facility] [address] [place] [address]Ihyqwd Angela Monocytes Auto #/vol (Bld) 0.4 103/ul Normal 0.3-0.8 [facility] Comment on above: Performed By: #### C BC ####[facility] [address] [place], [place] [address]Gerken Angela Monocytes/100 WBC Auto (Bld) 5.4 % Normal 1.7-12.0 [facility] Comment on above: Performed By: #### C BC ####[facility] [address] [place], [place] [address]Gerken Angela Neutrophils Auto #/vol (Bld) 5.4 103/ul Normal 1.4-6.5 [facility] Comment on above: Performed By: #### C BC ####[facility] [address] [place], [place] [address]Gerken Angela Neutrophils/100 WBC Auto (Bld) 67.0 % Normal 43.0-75.0 [facility] Comment on above: Performed By: #### C BC ####[facility] [address] [place] [address]Pwwznt Angela Platelet mean volume Auto Entitic volume (Bld) 9.3 fL Critically low 9.5-13.5 [facility] Comment on above: Performed By: #### C BC ####[facility] [address] [place], [place] [address]Gerken Angela Platelets Auto #/vol (Bld) 161 103/ul Normal 150-450 [facility] Comment on above: Performed By: #### C BC ####[facility] [address] Angela RBC Auto #/vol (Bld) 5.63 106/ul Normal 4.70-6.10 [facility] Comment on above: Performed By: #### C BC ####[facility] Eqpywbolzo9081 [address] Angela WBC Auto #/vol (Bld) 8.0 103/ul Normal 4.0-11.0 [facility] Comment on above: Performed By: #### C BC ####[facility] Rudwbtstrd[address] Angela DEPAKENE/VALPROICon 06-30-20 18 DEPAKENE >3.0 Critically low 50.0-100.0 [facility] Comment on above: Performed By: #### T SH, CMP, LIPID, VALP ####[facility] [address] [place] [address] Angela LIPID PROFILEon 06-30-2018 CHOL-HDL RATIO NORM SEE BELOW Normal [facility] Comment on above: Result Comment: 3.3 - 4.4 LOW RISK 4.4 - 7.1 AVERAGE RISK 7.1 - 11.0 MODERATE RISK >11.0 HIGH RISK Performed By: #### T SH, CMP, LIPID, VALP ####[facility] Zdqussctuy3041 [address] Angela Cholesterol in HDL mass conc 29 mg/dL Normal [facility] Comment on above: Performed By: #### T SH, CMP, LIPID, VALP ####[facility] Mjv[address]jdgu[address] Angela Cholesterol in HDL mass conc > or = 60 mg/dl - LOW CARDIOVASCULAR RISK <40 mg/dl - HIGH CARDIOVASCULAR RISK Normal [facility] Comment on above: Performed By: #### T SH, CMP, LIPID, VALP ####[facility] Xshix[address]emru[address] Angela Cholesterol in LDL mass conc 140.4 mg/dL Normal [facility] Comment on above: Performed By: #### T SH, CMP, LIPID, VALP ####[facility] Uniedljpeb[address]82 [address] Angela Cholesterol in LDL mass conc SEE BELOW Normal [facility] Comment on above: Result Comment: <100 mg/dl OPTIMAL 100 - 129 mg/dl NEAR OR ABOVE OPTIMAL 130 - 159 mg/dl BORDERLINE HIGH 160 - 189 mg/dl HIGH >190 mg/dl VERY HIGH Performed By: #### T SH, CMP, LIPID, VALP ####[facility] Quoyyrcmgd1240 [address] Angela Cholesterol mass conc 215 mg/dL Critically high <=200 [facility] Comment on above: Performed By: #### T SH, CMP, LIPID, VALP ####[facility] Lofphuqdck[address]50 [address] Angela Cholesterol.total/C holesterol in HDL mass ratio 7.4 {ratio} Normal [facility] Comment on above: Performed By: #### T SH, CMP, LIPID, VALP ####[facility] Eivrjnqkdl[address]197 [address] Angela Triglyceride mass conc 228 mg/dL Critically high <=150 [facility] Comment on above: Performed By: #### T SH, CMP, LIPID, VALP ####[facility] Iiujcopsoe1117 [address] Angela VLDL CALC 45.6 mg/dL Normal [facility] Comment on above: Performed By: #### T SH, CMP, LIPID, VALP ####[facility] Swumyuszhl3307 [address] Angela PROF 14(COMP METB)on 018 Albumin mass conc 4.4 g/dL Normal 3.5-5.0 [facility] Comment on above: Performed By: #### T SH, CMP, LIPID, VALP ####[facility] Hsjxotdxpo[address]59 [address] Angela Albumin/Globulin mass ratio 1.5 {ratio} Normal [facility] Comment on above: Performed By: #### T SH, CMP, LIPID, VALP ####[facility] Cvequssuoy8447 [address] Angela ALP enzyme act/vol 106 U/L Normal 38-126 [facility] Comment on above: Performed By: #### T SH, CMP, LIPID, VALP ####[facility] [address] [place] [id number] Angela ALT enzyme act/vol 35 U/L Normal 21-72 [facility] Comment on above: Performed By: #### T SH, CMP, LIPID, VALP ####[facility] [address] [place] [address] Angela Anion gap 3 molar conc 10.0 mmol/L Normal [facility] Comment on above: Performed By: #### T SH, CMP, LIPID, VALP ####[facility] [address] [place] [address] Angela AST enzyme act/vol 24 U/L Normal 17-59 [facility] Comment on above: Performed By: #### T SH, CMP, LIPID, VALP ####[facility] [address] [place] [address] Angela Bilirubin Ql (U) 0.8 mg/dL Normal 0.2-1.3 [facility] Comment on above: Performed By: #### T SH, CMP, LIPID, VALP ####[facility] We[address] [place], [place] [address]Ger[address] Angela Calcium mass conc 9.1 mg/dL Normal 8.4-10.2 [facility] Comment on above: Performed By: #### T SH, CMP, LIPID, VALP ####[facility] Uqtydnojxl[address]12 [address] Angela Chloride molar conc 102 mmol/L Normal 98-107 [facility] Comment on above: Performed By: #### T SH, CMP, LIPID, VALP ####[facility] Xsofvdalwd[address] Angela CO2 molar conc 30.9 mmol/L Critically high 22.0-30.0 [facility] Comment on above: Performed By: #### T SH, CMP, LIPID, VALP ####[facility] [address] [place] [id number] Angela Creatinine mass conc 1.24 mg/dL Normal 0.66-1.25 [facility] Comment on above: Performed By: #### T SH, CMP, LIPID, VALP ####[facility] Wbynalviet4352 [address] Angela EGFR-AF LAO >60 Normal >=60 [facility] Comment on above: Performed By: #### T SH, CMP, LIPID, VALP ####[facility] Dgbqhbfcwo4969 [address] Angela EGFR-NON AF LAO 60 mL/min/1.73m2 Normal >=60 [facility] Comment on above: Performed By: #### T SH, CMP, LIPID, VALP ####[facility] Gtiadupmdl[address] Angela Globulin Calculated mass conc (S) 2.9 g/dL Normal [facility] Comment on above: Performed By: #### T SH, CMP, LIPID, VALP ####[facility] Qjxaaqnncd1273 [address] Angela Glucose mass conc 111 mg/dL Critically high 74-106 [facility] Comment on above: Performed By: #### T SH, CMP, LIPID, VALP ####[facility] Wixhfaxuqw8315 [address] Angela Potassium molar conc 3.9 mmol/L Normal 3.4-5.0 [facility] Comment on above: Performed By: #### T SH, CMP, LIPID, VALP ####[facility] Xgjhlkrjmm5424 [address] Angela Protein mass conc 7.3 g/dL Normal 6.1-8.2 [facility] Comment on above: Performed By: #### T SH, CMP, LIPID, VALP ####[facility] Xmyl[address]ixlwn[address] Sodium molar conc 139 mmol/L Normal 137-145 [facility] Comment on above: Performed By: #### T SH, CMP, LIPID, VALP ####[facility] [address] [place] [id number] Angela Urea nitrogen mass conc 16.0 mg/dL Normal 9.0-20.0 [facility] Comment on above: Performed By: #### T SH, CMP, LIPID, VALP ####[facility] Cntybzadwa[address] Angela Urea nitrogen/Creatinine mass ratio 12.9 mg/mg Normal [facility] Comment on above: Performed By: #### T SH, CMP, LIPID, VALP ####[facility] Czbmolafan0524 [address] TSHon 06-30-2018 Thyrotropin Qn 11.530 uIU/mL Critically high 0.470-4.680 [facility] Comment on above: Performed By: #### T SH, CMP, LIPID, VALP ####[facility] Wued[address]copz[address] Angela Thyrotropin Qn SEE BELOW Normal [facility] Comment on above: Result Comment: <0.3 4 UIU/ml HYPERTHYROID 0.34-5.60 UIU/ml EUTHYROID >5.60 UIU/ml HYPOTHYROID Performed By: #### T SH, CMP, LIPID, VALP ####[facility] Uuaklercuh[address]328 [address] Encounters Encounter Date Encounter Type Care Provider Facility Start: 03-31-2024 Emergency department patient visit [facility] Start: 06-30-2018 End: 07-01-2018 Patient encounter procedure DOCTOR MISC Facility:[facility]1 Payers Date Payer Category Payer Unknown [id number] 1960 Unknown [id number] Summary Purpose Family History No Family History Records FoundNo Family History Records Found Advance Directives No Advanced Directives Records FoundNo Advanced Directives Records Found Additional Source Comments (unrecognized sect ion and content) No Status Records FoundNo Status Records Found INFORMATION SOURCE (unrecogn ized section and content) DATE CREATED AUTHOR 07/08/2018 [facility] DATE CREATED AUTHOR AUTHOR'S ORGANIZ ATION 04/28/2024 [facility] FOR RECORDS PERTAINING TO PATIENTS WHO ARE OR HAVE BEEN ENROLLED IN A CHEMICAL DEPENDENCY/SUBSTANCEABUSE PROGRAM, SOME INFORMATION MAY BE OMITTED. This clinical summary was aggregated from multiple sources. Caution should be exercised in using it in the provision of clinical care. This summary normalizes information from multiple sources, and as a consequence, information in this document may materially change the coding, format and clinical context of patient data. In addition, data may be omitted in some cases. CLINICAL DECISIONS SHOULD BE BASED ON THE PRIMARY CLINICAL RECORDS. [facility] [employer] [facility]. provides no warranty or guarantee of the accuracy or completeness of information in this document.
--- NOTE | 2024-04-30 14:54 | PC.NURSE ---
admitted to icu 275 on cardene drip. oriented to room and call light. plan of care discussed, verbalized understanding. pt stated he was at his routine eye appt and the office noted his high bp. pt finished eye appt and was told to go to urgent care, who directed pt to come to the ER. pt stated the eye dr dilated his eyes. c/u dull headache, rates 2/10. dr packer at bedside.
--- NOTE | 2024-04-30 15:12 | PM.HP ---
HPI H&P: HPI History of Present Illness Chief complaint: HIGH BP, RECHECK, HYPERTENSIVE EMERGENCY Narrative: 63 y o male who was previously discharged in 12/31 for HTN emergencies presented to ED from his [employer] office who reportedly told that his blood vessels on eye exam were indicative of elevated BP. Last time, when patient was admitted, he was discharged on losartan, amlodipine and coreg. When he was using his medications, his BP averaged 140-150. He was also set up with a PCP to follow up afterwards so that he could continue to get his medications but unfortunately, he was told by the new provider that he was late for his appointment and he could not be seen. Patient told me that he was not late for the appointment and instead was there early. He did not make any effort to find a PCP and after he ran out of his medications, he has not been using anything for his BP since at least February. He reports his BP has been elevated and mostly around 180/100 but never been in the 200s.Upon arrival, his BP in ED was 220/120. He was given IV hydralazine with no improvement. He was then started on IV cardene for HTN emergency. Patient denies CP, SOB, palpitations but reports that he was having a really bad CAMACHO since yesterday. His CAMACHO is now better since he came to ED. Opioid HPI Opioid Management Most Recent Pain and Opioid Data: Last Pain Scale 2 04/30/24 14:28 04/30/24 Last Pain Assessment 04/30/24 18:00 Last ORT Total Score 0 04/30/24 14:23 04/30/24 Last ORT Risk Category Low Risk 04/30/24 14:23 04/30/24 Review of Systems ROS Status of ROS 10 or more systems reviewed and unremarkable except as noted in history and below [facility] Medical History Elevated serum creatinine ?R79.89 - Other specified abnormal findings of blood chemistry (ICD-10) Elevated troponin ?R79.89 - Other specified abnormal findings of blood chemistry (ICD-10) HTN (hypertension) ?I10 - Essential (primary) hypertension (ICD-10) CKD stage 3a, GFR 45-59 ml/min ?N18.31 - Chronic kidney disease, stage 3a (ICD-10) HLD (hyperlipidemia) ?E78.5 - Hyperlipidemia, unspecified (ICD-10) H/O: stroke ?Z86.73 - Personal history of transient ischemic attack (TIA), and cerebral infarction without residual deficits (ICD-10) Current smoker ?F17.200 - Nicotine dependence, unspecified, uncomplicated (ICD-10) Social History (Updated 04/30/24 @ 14:34 by Yanique Gallo) Within the past year, how often did you have a drink containing alcohol: never Within the past year, how many standard drinks containing alcohol did you have on a typical day: 1 or 2 Within the past year, how often did you have six or more drinks on one occasion: never Total score: 0 Score interpretation: A score less than 4 is consistent with normal alcohol consumption. Smoking status: Former smoker Non-prescribed substance use: denies use Highest level of school completed/degree received: high school graduate Little interest or pleasure in doing things: not at all Feeling down, depressed, or hopeless: not at all Meds Home Medications and Allergies Home Medications ?Medication ?Instructions ?Recorded ?Confirmed ?Type amlodipine 10 mg tablet 10 mg PO DAILY 04/30/24 04/30/24 History aspirin 81 mg chewable tablet 81 mg PO DAILY 04/30/24 04/30/24 History (Catrina Chewable Low Dose Aspirin) atorvastatin 40 mg tablet 40 mg PO DAILY 04/30/24 04/30/24 History carvedilol 25 mg tablet 25 mg PO BID 04/30/24 04/30/24 History losartan 100 mg tablet 100 mg PO DAILY 04/30/24 04/30/24 History Allergies Allergy/AdvReac Type Severity Reaction Status Date / Time No Known Drug Allergies Allergy Verified 12/10/23 05:41 Exam Constitutional Vital Signs, click to edit/add: Last Vital Signs Temp 97.4 F L 04/30/24 14:23 Pulse 95 H 04/30/24 14:55 Resp 18 04/30/24 14:55 BP 182/83 H 04/30/24 14:55 Pulse Ox 94 L 04/30/24 14:55 O2 Del Method Room Air 04/30/24 14:23 Documenting provider has reviewed patient's vital signs: yes Common normals: no apparent distress and oriented x3 General appearance: cooperative [facility] Common normals: normocephalic and head/scalp atraumatic Head and scalp: normocephalic and atraumatic Eye Common normals: conjunctivae normal and no scleral icterus Conjunctiva: conjunctiva(e) normal Respiratory Common normals: normal respiratory effort and clear to auscultation bilaterally Effort & inspection: able to speak in complete sentences Auscultation: clear to auscultation bilaterally Cardio Common normals: regular rate, S1 normal heart sound and S2 normal heart sound Rate: regular rate Heart sounds: S1 normal and S2 normal GI Common normals: Normal to inspection, nondistended, normoactive bowel sounds present, soft to palpation, non-tender and no hepatosplenomegaly Palpation: soft and no hepatosplenomegaly Extremity Common normals: no clubbing, cyanosis or edema Neuro Common normals: oriented x3, moves all extremities and no focal motor deficits Psych Common normals: mental status grossly normal, denies hallucinations, denies homicidal ideation and denies suicidal ideation Results Labs Labs: Short CBC 04/30/24 Range/Units 12:57 WBC 11.4 H (4.0-11.0) 10^3/uL Hgb 18.2 H (14.0-18.0) g/dL Hct 52.5 (42.0-54.0) % Plt Count 185 (150-450) 10^3/uL BMP 04/30/24 12:57 Sodium 142 Potassium 3.9 Chloride 103 Carbon Dioxide 26.4 BUN 17.0 Creatinine 1.90 H Glucose 123 H Calcium 9.5 Liver Function 04/30/24 Range/Units 12:57 Total Bilirubin 0.9 (0.2-1.0) mg/dL AST 24 (15-37) U/L ALT 39 (16-63) U/L Alkaline Phosphatase 134 H (46-116) U/L Albumin 4.1 (3.4-5.0) g/dL Assessment and Plan Assessment and Plan (1) Hypertensive emergency: Assessment and Plan: Patient presented with hypertensive emergency with systolic blood pressure as high as 220. He reports CAMACHO that is worse than usual since yesterday. Otherwise he is not complaining of any other symptoms and denies chest pain, shortness of breath, weakness, numbness, visual changes. Patient started on IV cardene. Resume oral Coreg/losartan and Amlodipine. (2) Headache: Assessment and Plan: No acute intracranial pathology on CT head. No neurological signs and symptoms. Conservative care. Likely because of hypertensive emergency. CAMACHO improved already Qualifiers: Headache type: unspecified Headache chronicity pattern: unspecified pattern Intractability: not intractable Qualified Code(s): R51.9 - Headache, unspecified (3) Elevated troponin: Assessment and Plan: Likely because of hypertensive emergency. Denies chest pain, shortness of breath. Trend troponins. No significant/ischemic EKG changes. Will benefit from outpatient evaluation for ischemic heart disease. (4) HLD (hyperlipidemia): Assessment and Plan: C/w Lipitor Qualifiers: Hyperlipidemia type: unspecified Qualified Code(s): E78.5 - Hyperlipidemia, unspecified (5) CKD stage 3a, GFR 45-59 ml/min: Assessment and Plan: CKD 3, likely from HTN. Cr worse than previous baseline. Monitor closely. (6) Current smoker: Assessment and Plan: Discussed smoking cessation (7) H/O: stroke: Assessment and Plan: Hx of previous stroke on CTH/MRI. On ASA, statin. Plan Patient presented with hypertensive emergency resulting in headache, elevated troponin, renal dysfunction. Even though his blood pressure has improved, he will need close monitoring on shelter monitor along with close hemodynamic monitoring to ensure his blood pressure is gradually decreased. Goal blood pressure is 160-180/90-100 in first 24 hours. Needs cardiac monitoring for 24 to 48 hours because of elevated troponin as risk of ventricular arrhythmias. Patient admitted as inpatient as anticipated to require greater than 2 midnight of inpatient treatment/management of his acute illness
[2024-04-30 15:39] LABS: Troponin I High Sensitivity 75.5 pg/mL (4.0-76.1)
[2024-04-30 20:11] LABS: Troponin I High Sensitivity 73.2 pg/mL (4.0-76.1)
[2024-04-30] MEDS: CARVEDILOL 25 MG TABLET PO (21:39)
[2024-04-30] MEDS: ACETAMINOPHEN 325 MG TABLET 650 MG PO (21:40)
[2024-04-30] MEDS: ATORVASTATIN CALCIUM 40 MG TABLET PO (21:40)
[2024-04-30] MEDS: HEPARIN SODIUM (PORCINE) 5,000 UNIT/ML VIAL 5000 UNIT SUBQ (21:40)
[2024-04-30] MEDS: DOCUSATE SODIUM 100 MG CAPSULE PO (21:40)
[2024-05-01] VITALS (21 sets, daily range): BP systolic 126–155; BP diastolic 88–109; PULSE 60–80; TEMP 36.3; O2SAT 96–98
[2024-05-01] MEDS: HEPARIN SODIUM (PORCINE) 5,000 UNIT/ML VIAL 5000 UNIT SUBQ (05:28)
[2024-05-01 05:48] LABS: Basophils Absolute Auto 0.1 10^3/uL (0.0-0.1); Basophils Percent Auto 1.1 % (0.2-2.0); Eosinophils Absolute Auto 0.5 10^3/uL (0.0-0.7); Eosinophils Percent Auto 4.5 % (0.9-7.0); Hematocrit 46.6 % (42.0-54.0); Immature Granulocytes Abs Auto 0.02 10^3/uL (0.00-0.03); Immature Granulocytes Pct Auto 0.2 % (0.0-0.5); Lymphocytes Absolute Auto 2.8 10^3/uL (1.2-3.8); Lymphocytes Percent Auto 26.5 % (20.5-60.0); Mean Corpuscular HGB Conc 34.3 g/dL (29.9-35.2); Mean Corpuscular Hemoglobin 29.7 pg (25.9-34.0); Mean Corpuscular Volume 86.5 fL (80.0-94.0); Mean Platelet Volume 9.9 fL (9.5-13.5); Monocytes Absolute Auto 0.4 10^3/uL (0.3-0.8); Monocytes Percent Auto 4.2 % (1.7-12.0); Neutrophils Absolute Auto 6.6 10^3/uL (1.4-6.5); Neutrophils Percent Auto 63.5 % (43.0-75.0); Platelet Count 165 10^3/uL (150-450); Red Blood Count 5.39 10^6/uL (4.70-6.10); Red Cell Distribution Width 12.4 % (11.0-15.0); White Blood Count 10.4 10^3/uL (4.0-11.0)
[2024-05-01 06:30] LABS: Alanine Aminotransferase 30 U/L (16-63); Albumin Globulin Ratio 1.1; Albumin Level 3.3 g/dL (3.4-5.0); Alkaline Phosphatase 105 U/L (46-116); Aspartate Amino Transferase 17 U/L (15-37); BUN Creatinine Ratio 11.5; Calcium 9.1 mg/dL (8.5-10.1); Carbon Dioxide 24.8 mmol/L (21.0-32.0); Chloride 104 mmol/L (98-107); Estimated GFR (African America 39 (>=60 mL/min/1.73m^2); Estimated GFR (Non-African Ame 32 (>=60 mL/min/1.73m^2); Glucose 106 mg/dL (74-106); Potassium 3.8 mmol/L (3.5-5.1); Sodium 140 mmol/L (136-145); Total Protein 6.3 g/dL (6.4-8.2)
[2024-05-01] MEDS: ASPIRIN 81 MG TABLET.DR PO (08:03)
[2024-05-01] MEDS: LOSARTAN POTASSIUM 50 MG TABLET 100 MG PO (08:03)
[2024-05-01] MEDS: CARVEDILOL 25 MG TABLET PO (08:03)
[2024-05-01] MEDS: AMLODIPINE BESYLATE 5 MG TABLET 10 MG PO (08:04)
--- NOTE | 2024-05-01 09:40 | PM.DS1 ---
DS: Providers Provider Date of admission: 04/30/24 14:18 Primary care physician: Non-Staff PhysicianMD Admitting clinician: Shaikh Wendie Attending physician on admission: Shaikh Wendie Consults: 04/30/24 13:51 Physical Therapy Eval and Treat Routine Reason for consultation: Ambulatory dysfunction/weakness Attending physician on discharge: Shaikh Wendie Discharging clinician: Shaikh Wendie Anticipated date of discharge: 05/01/24 DS: Diagnosis Discharge Diagnosis (1) Hypertensive emergency: (2) Headache: Qualifiers: Headache type: unspecified Headache chronicity pattern: unspecified pattern Intractability: not intractable Qualified Code(s): R51.9 - Headache, unspecified (3) Elevated troponin: (4) HLD (hyperlipidemia): Qualifiers: Hyperlipidemia type: unspecified Qualified Code(s): E78.5 - Hyperlipidemia, unspecified (5) CKD stage 3a, GFR 45-59 ml/min: (6) Current smoker: (7) H/O: stroke: DS: Summary Hospital Course Hospital Course: 63 y o male who was previously discharged in 12/31 for HTN emergencies presented to ED from his [employer] office who reportedly told that his blood vessels on eye exam were indicative of elevated BP. Last time, when patient was admitted, he was discharged on losartan, amlodipine and coreg. When he was using his medications, his BP averaged 140-150. He was also set up with a PCP to follow up afterwards so that he could continue to get his medications but unfortunately, he was told by the new provider that he was late for his appointment and he could not be seen. Patient told me that he was not late for the appointment and instead was there early. He did not make any effort to find a PCP and after he ran out of his medications, he has not been using anything for his BP since at least February. He reports his BP has been elevated and mostly around 180/100 but never been in the 200s. Upon arrival, his BP in ED was 220/120. He was given IV hydralazine with no improvement. He was then started on IV cardene for HTN emergency. His oral medications were resumed. His blood pressure gradually improved during the course of admission. Patient denies CP, SOB, palpitations but reports that he was having a really bad CAMACHO that went away once his BP improved. On w/u, he was noted to have elevated troponin, no acute changes on EKG, no events on tele noted and patient remained CP free. Troponin also trended down. Patient was weaned off of Cardene drip last evening. His BP has been better, still above goal but persistently less than 160/100 on average. Given his presentation - elevated troponin, Headache with BP as high as 120/120 that required cont IV infusion of cardene, he was anticipated to require inpatient treatment/monitoring for 2-3 days but he recovered sooner than anticipated and is medically stable for discharge. Patient counseled on importance of compliance. He will be established with a new PCP and was instructed to f/u in 1-2 weeks. Status at Discharge Functional status at discharge: independent ambulation Overall status at discharge: patient is back to baseline Time Spent with Patient Time attestation: Total time spent providing and/or coordinating discharge services: Time spent: greater than 30 minutes Exam Constitutional Vital Signs, click to edit/add: Last Vital Signs Temp 97.4 F L 05/01/24 04:00 Pulse 64 05/01/24 08:10 Resp 11 L 05/01/24 08:10 BP 155/92 H 05/01/24 08:00 Pulse Ox 98 05/01/24 08:00 O2 Del Method Room Air 05/01/24 08:00 Documenting provider has reviewed patient's vital signs: yes Common normals: no apparent distress and oriented x3 General appearance: cooperative Respiratory Common normals: normal respiratory effort and clear to auscultation bilaterally Effort & inspection: able to speak in complete sentences Auscultation: clear to auscultation bilaterally Cardio Common normals: regular rate, S1 normal heart sound and S2 normal heart sound Rate: regular rate Heart sounds: S1 normal and S2 normal Extremity Common normals: no clubbing, cyanosis or edema Neuro Common normals: oriented x3, moves all extremities and no focal motor deficits Psych Common normals: mental status grossly normal, denies hallucinations, denies homicidal ideation and denies suicidal ideation DS: Data Data Completed and Pending Labs on day of discharge: Labs from last 24 hours 05/01/24 04/30/24 04/30/24 05:18 19:40 15:16 WBC 10.4 RBC 5.39 Hgb 16.0 Hct 46.6 MCV 86.5 MCH 29.7 MCHC 34.3 RDW 12.4 Plt Count 165 MPV 9.9 Neut % (Auto) 63.5 Lymph % (Auto) 26.5 [place] % (Auto) 4.2 Eos % (Auto) 4.5 Baso % (Auto) 1.1 Neut # (Auto) 6.6 H Lymph # (Auto) 2.8 [place] # (Auto) 0.4 Eos # (Auto) 0.5 Baso # (Auto) 0.1 Abs Immat Gran (auto) 0.02 Imm/Tot Granulo (auto) 0.2 Sodium 140 Potassium 3.8 Chloride 104 Carbon Dioxide 24.8 Anion Gap 15.0 BUN 24.0 H Creatinine 2.08 H Est GFR ( Amer) 39 L Est GFR (Non-Af Amer) 32 L BUN/Creatinine Ratio 11.5 Glucose 106 Calcium 9.1 Total Bilirubin 1.0 AST 17 ALT 30 Alkaline Phosphatase 105 Troponin I High Sens 73.2 75.5 Total Protein 6.3 L Albumin 3.3 L Globulin 3.0 Albumin/Globulin Ratio 1.1 04/30/24 12:57 WBC 11.4 H RBC 6.06 Hgb 18.2 H Hct 52.5 MCV 86.6 MCH 30.0 MCHC 34.7 RDW 12.3 Plt Count 185 MPV 9.7 Neut % (Auto) 71.8 Lymph % (Auto) 19.8 L [place] % (Auto) 3.7 Eos % (Auto) 3.3 Baso % (Auto) 1.1 Neut # (Auto) 8.2 H Lymph # (Auto) 2.3 [place] # (Auto) 0.4 Eos # (Auto) 0.4 Baso # (Auto) 0.1 Abs Immat Gran (auto) 0.03 Imm/Tot Granulo (auto) 0.3 Sodium 142 Potassium 3.9 Chloride 103 Carbon Dioxide 26.4 Anion Gap 16.5 BUN 17.0 Creatinine 1.90 H Est GFR ( Amer) 44 L Est GFR (Non-Af Amer) 36 L BUN/Creatinine Ratio 8.9 Glucose 123 H Calcium 9.5 Total Bilirubin 0.9 AST 24 ALT 39 Alkaline Phosphatase 134 H Troponin I High Sens 81.9 H* Total Protein 7.7 Albumin 4.1 Globulin 3.6 Albumin/Globulin Ratio 1.1 Discharge Plan Discharge Disposition: Home, Self-Care Discharge Medications: Continued atorvastatin 40 mg tablet 40 mg PO DAILY 30 Days Qty: 30 1RF carvedilol 25 mg tablet 25 mg PO BID 30 Days Qty: 60 1RF amlodipine 10 mg tablet 10 mg PO DAILY 30 Days Qty: 30 1RF aspirin [Catrina Chewable Aspirin] 81 mg tablet,chewable 81 mg PO DAILY 30 Days Qty: 30 1RF losartan 100 mg tablet 100 mg PO DAILY 30 Days Qty: 30 1RF Activity: increase activity as tolerated Diet: advance to your usual diet Print Language: Citizen Of [place] Forms: Portal Instructions Follow Up Appointments: F/u with PCP in 1-2 weeks
--- NOTE | 2024-05-01 09:54 | CM.NOTE ---
Rounds made with Dr. Pressley, pt will discharge to home today. Dr. Pressley discussed with pt importance of f/u appt, pt will be set up with Dr. Villanueva or [facility] (Marylin Daily) for f/u appt. No other discharge needs identified.
[2024-05-01] MEDS: FLU VAC QS 2024(6MS UP)CEL/PF 60 MCG/0.5 ML SYRINGE IM (10:12)
--- NOTE | 2024-05-01 10:19 | PC.NURSE ---
dc instructions given to pt. pt verbalized understanding. compliance with taking meds and getting established with pcp stressed to pt, again verbalized understanding. ambulated to exit with steady gait. discharged to private vehicle.
--- NOTE | 2024-05-02 11:36 | CM.DCFOLLOWU ---
1st attempt 05/02/24, no answer
--- NOTE | 2024-05-03 10:54 | CM.DCFOLLOWU ---
05/03- 1st attempt. No answer
== END 2024-05-01 10:21 | disposition home or self-care (01) | DRG 305 ==
LOC: ER 13:52 → ICU 14:20
PROVIDERS: Admitting Provider Internal Medicine; Emergency Provider Emergency Medicine; Visit Provider Internal Medicine
DX: I16.1 Hypertensive emergency (principal); R51.9 Headache, unspecified; R79.89 Other specified abnormal findings of blood chemistry; E78.5 Hyperlipidemia, unspecified; I12.9 Hypertensive chronic kidney disease with stage 1 through stage 4 chronic kidney disease, or unspecified chronic kidney disease; N18.31 Chronic kidney disease, stage 3a; F17.200 Nicotine dependence, unspecified, uncomplicated; Z86.73 Personal history of transient ischemic attack (TIA), and cerebral infarction without residual deficits; Z79.82 Long term (current) use of aspirin; Z79.899 Other long term (current) drug therapy
CPT/HCPCS: 36415; 70450; 80053; 84484; 85025; 90674; 93005; 96374; 99285; J0360; J1644; J2404

== ENCOUNTER 2024-07-09 10:56 | Outpatient (OUT) | payer OTHER, SELFPAY ==
[2024-07-09 11:34] LABS: Estimated Average Glucose 111 mg/dL; Glycohemoglobin A1C 5.5 % (4.5-6.2)
[2024-07-09 11:52] LABS: Alanine Aminotransferase 32 U/L (16-63); Albumin Globulin Ratio 1.2; Albumin Level 3.9 g/dL (3.4-5.0); Alkaline Phosphatase 117 U/L (46-116); Anion Gap 15.1; Aspartate Amino Transferase 20 U/L (15-37); BUN Creatinine Ratio 11.4; Bilirubin Total 0.9 mg/dL (0.2-1.0); Calcium 9.3 mg/dL (8.5-10.1); Carbon Dioxide 24.1 mmol/L (21.0-32.0); Chloride 106 mmol/L (98-107); Chol HDL Ratio 4.4; Cholesterol 129 mg/dL (<=200); Estimated GFR (African America 34 (>=60 mL/min/1.73m^2); Estimated GFR (Non-African Ame 28 (>=60 mL/min/1.73m^2); Free T3 2.26 pg/mL (2.18-3.98); Globulin 3.2 g/dL; Glucose 103 mg/dL (74-106); HDL Cholesterol 29 mg/dL (40-60); Potassium 4.2 mmol/L (3.5-5.1); Sodium 141 mmol/L (136-145); Thyroid Stimulating Hormone 10.066 uIU/mL (0.358-3.740); Total Protein 7.1 g/dL (6.4-8.2); Triglycerides 189 mg/dL (<=150); Uric Acid 5.8 mg/dL (3.5-7.2); VLDL CHOLESTEROL 37.8 mg/dL
[2024-07-09 12:06] LABS: Basophils Absolute Auto 0.1 10^3/uL (0.0-0.1); Eosinophils Absolute Auto 0.6 10^3/uL (0.0-0.7); Eosinophils Percent Auto 6.2 % (0.9-7.0); Hematocrit 41.8 % (42.0-54.0); Hemoglobin 14.3 g/dL (14.0-18.0); Immature Granulocytes Abs Auto 0.02 10^3/uL (0.00-0.03); Immature Granulocytes Pct Auto 0.2 % (0.0-0.5); Lymphocytes Absolute Auto 1.6 10^3/uL (1.2-3.8); Lymphocytes Percent Auto 17.5 % (20.5-60.0); Mean Corpuscular HGB Conc 34.2 g/dL (29.9-35.2); Mean Corpuscular Hemoglobin 29.9 pg (25.9-34.0); Mean Corpuscular Volume 87.3 fL (80.0-94.0); Mean Platelet Volume 9.7 fL (9.5-13.5); Monocytes Absolute Auto 0.4 10^3/uL (0.3-0.8); Monocytes Percent Auto 4.2 % (1.7-12.0); Neutrophils Absolute Auto 6.5 10^3/uL (1.4-6.5); Neutrophils Percent Auto 70.9 % (43.0-75.0); Platelet Count 182 10^3/uL (150-450); Red Blood Count 4.79 10^6/uL (4.70-6.10); Red Cell Distribution Width 12.8 % (11.0-15.0); White Blood Count 9.2 10^3/uL (4.0-11.0)
[2024-07-09 12:21] LABS: Prostate Specific Antigen Scrn 2.37 ng/mL (<=4.00)
[2024-07-11 12:07] LABS: Insulin 23.6 uIU/mL (2.6-24.9)
== END 2024-07-09 10:57 | disposition home or self-care (01) ==
LOC: LAB 10:58
PROVIDERS: PCP Nurse Practitioner Family; Visit Provider Nurse Practitioner Family
DX: Z00.00 Encounter for general adult medical examination without abnormal findings (principal)
CPT/HCPCS: 36415; 80053; 80061; 83036; 83525; 84436; 84443; 84481; 84550; 85025; G0103